=== PATIENT | female | born 1980 | race Caucasian/White ===

== ENCOUNTER 2020-11-12 09:27 | Outpatient (CLI) | payer OTHER, SELFPAY ==
--- NOTE | ~2020-11-12 | MM_ITS ---
EXAMINATION: MM screening shawn BI w rahul HISTORY: Screening TECHNIQUE: Craniocaudal and mediolateral oblique 3-D tomosynthesis images were obtained and synthetic 2-D images were generated. CAD analysis was submitted and interpreted. COMPARISON: No prior mammogram is available for comparison at this institution. BREAST PARENCHYMAL COMPOSITION: There are scattered areas of fibroglandular density. FINDINGS: There is no evidence of suspicious mass, calcification, or architectural distortion to sugg est malignancy in either breast. There has been no suspicious interval change. IMPRESSION: 1. No mammographic evidence of malignancy. 2. Recommend routine screening mammography in one year. BI-RADS Category 1: Negative Reviewed, dictated and finalized at location A.
== END 2020-11-12 09:28 | disposition home or self-care (01) ==
LOC: ANHIMG 09:29
PROVIDERS: PCP Family Medicine; Visit Provider Obstetrics & Gynecology
DX: Z12.31 Encounter for screening mammogram for malignant neoplasm of breast (principal)
CPT/HCPCS: 77063; 77067

== ENCOUNTER 2022-01-13 12:36 | Outpatient (CLI) | payer OTHER, SELFPAY ==
--- NOTE | ~2022-01-13 | MM_ITS ---
EXAMINATION: MM screening shawn BI w rahul HISTORY: Screening TECHNIQUE: Craniocaudal and mediolateral oblique 3-D tomosynthesis images were obtained and synthetic 2-D images were generated. CAD analysis was submitted and interpreted. COMPARISON: 11/12/2020 BREAST PARENCHYMAL COMPOSITION: There are scattered areas of fibroglandular density. FINDINGS: There is no evidence of suspicious mass, calcification, or architectural distortion to sugg est malignancy in either breast. There has been no suspicious interval change. IMPRESSION: 1. No mammographic evidence of malignancy. 2. Recommend routine screening mammography in one year. BI-RADS Category 1: Negative Reviewed, dictated and finalized at location A. SION SUPERVISOR
== END 2022-01-13 12:37 | disposition home or self-care (01) ==
PROVIDERS: Visit Provider Obstetrics & Gynecology
DX: Z12.31 Encounter for screening mammogram for malignant neoplasm of breast (principal)
CPT/HCPCS: 77063; 77067

== ENCOUNTER 2023-01-24 09:17 | Outpatient (CLI) | payer OTHER, SELFPAY ==
--- NOTE | ~2023-01-24 | MM_ITS ---
EXAMINATION: MM screening shawn BI w rahul HISTORY: Screening mammogram TECHNIQUE: Craniocaudal and mediolateral oblique 3-D tomosynthesis images were obtained and synthetic 2-D images were generated. CAD analysis was submitted and interpreted. COMPARISON: 01/13/2022, 11/12/2020 bilateral screening mammogram examinations BREAST PARENCHYMAL COMPOSITION: There are scattered areas of fibroglandular density. FINDINGS: There is no evidence of suspicious mass, calcification, or architectural distortion to sugg est malignancy in either breast. There has been no suspicious interval change. IMPRESSION: 1. No mammographic evidence of malignancy. 2. Recommend routine screening mammography in one year. BI-RADS Category 1: Negative Reviewed, dictated and finalized at location A. TAL MARKETING SPECIALIST
== END 2023-01-24 09:18 | disposition home or self-care (01) ==
LOC: ANHIMG 09:20
PROVIDERS: PCP Internal Medicine; Visit Provider Obstetrics & Gynecology
DX: Z12.31 Encounter for screening mammogram for malignant neoplasm of breast (principal)
CPT/HCPCS: 77063; 77067

== ENCOUNTER 2024-02-23 08:51 | Outpatient (CLI) | payer OTHER, SELFPAY ==
--- NOTE | ~2024-02-23 | MM_ITS ---
EXAMINATION: MM screening shawn BI w rahul HISTORY: Screening TECHNIQUE: Craniocaudal and mediolateral oblique 3-D tomosynthesis images were obtained and synthetic 2-D images were generated. CAD analysis was submitted and interpreted. COMPARISON: 01/24/2023 and dating back to 11/12/2020 BREAST PARENCHYMAL COMPOSITION: There are scattered areas of fibroglandular density. FINDINGS: Stable parenchymal pattern without suspicious microcalcifications, architectural distortion, discrete masses or significant asymmetry. IMPRESSION: 1. No mammographic evidence of malignancy. 2. Recommend routine screening mammography in one year. BI-RADS Category 1: Negative Reviewed, dictated and finalized at location A. E CUTTER AND SWAGER
--- OUTSIDE RECORDS SUMMARY | 2024-03-01 20:35 | XMS_ITS | Encounter Summary ---
Author Organization [facility] Address [address] [place] [address]. [place], [place] [address] [place], [place] [id number] Care Team Providers Care Resistance Welder Name Role Phone Soraya Elias MD Primary Care Pr ovider Unavailable Tiffanie Malcolm MD Primary Care Provider [phone] Encounter Details Date Type Department Care Team (Latest Contact Info) Description 01/13/2022 Socrative Message Enc [facility] Multispecialty Care - [address] [place] [address] Soraya Elias MD Type of cardiomyopathy Social History Tobacco Use Types Packs/Day Years Used Date Smoking Tobacco: Never Smokeless Tobacco: Never Alcohol Use Standard Drinks/Week Comments Yes 6.7 (1 standard drink = 0.6 oz p ure alcohol) PHQ-2 Answer Date Recorded PHQ-2 Score - If the patient scores above 3, please move on to questions 3-9 0 11/10/2021 Comments No Sex and Gender Information Value Date Recorded Sex Assigned at Not on file Legal Sex Female 9:02 AM CDT Gender Identity Not on file Sexual Orientation Not on file COVID-19 Exposure Response Date Recorded In the last 10 days, have yo u been in contact with someone who was confirmed or suspected to have Coronavirus/COVID-19? No / Unsure 01/13/2022 8:48 AM EMAIL PRODUCER documented as of this encounter Plan of Treatment Not on file documented as of this encounter Visit Diagnoses Not on filedocumented in this encounter Care Teams Resistance Welder Relationship Specialty Start Date End Date Soraya Elias MD PCP - General FAMILY PRACTICE 11/10/21 08/01/22 Tiffanie Malcolm MD [address] [address] PCP - General INTERNAL MEDICINE 08/02/22 documented as of this encounter
--- OUTSIDE RECORDS SUMMARY | 2024-03-01 20:35 | XMS_ITS | Encounter Summary ---
Author Organization [facility] Address [facility]. [place], [place] [address] [place] [address] Care Team Providers Care Textile Screen Printer Name Role Phone Tiffanie Malcolm MD Primary Care Provider [phone] Encounter Details Date Type Department Care Team (Latest Contact Info) Description 09/06/2022 Travel Social History Tobacco Use Types Packs/Day Years Used Date Smoking Tobacco: Never Passive Smoke Exposure: Past Smokeless Tobacco: Never Alcohol Use Standard Drinks/Week Comments Yes 6.7 (1 standard drink = 0.6 oz p ure alcohol) PHQ-2 Answer Date Recorded Patient Health Questionnaire-2 Score 0 07/09/2022 Comments No Sex and Gender Information Value Date Recorded Sex Assigned at Not on file Legal Sex Female 9:02 AM CDT Gender Identity Not on file Sexual Orientation Not on file 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
--- OUTSIDE RECORDS SUMMARY | 2024-03-01 20:35 | XMS_ITS | Encounter Summary ---
Author Organization [facility] Address [address] [place] [address]. [id number] [place] [address] Care Team Providers Care Assistant Administrator Name Role Phone Soraya Elias MD Primary Care Pr ovider Unavailable Reason for Visit * Reason Onset Date Comments Schedule Test 11/26/2021 echo Encounter Details Date Type Department Care Team (Late st Contact Info) Description 11/26/2021 [place] [address] Mar Henley RMA Schedule Test (echo) Social History Tobacco Use Types Packs/Day Years [...] suspected to have Coronavirus/COVID-19? No / Unsure 11/10/2021 9:02 AM CDT documented as of this encounter Progress Notes * JOSETTE Reynolds - 11/26/2021 6:20 PM CDT Left message for ordering that we need payable dx code before scheduling echo. documented in this encounter Plan of Treatment Not on file documented as of this encounter Visit Diagnoses Not on filedocumented in this encounter Care Teams Assistant Administrator Relationship Specialty Start Date End Date Soraya Elias MD PCP - General FAMILY PRACTICE 11/10/21 08/01/22 documented as of this encounter
--- OUTSIDE RECORDS SUMMARY | 2024-03-01 20:35 | XMS_ITS | Encounter Summary ---
Author Organization [facility] Address [address] [place] [address]. [place], [place] [address] [place] [address] Care Team Providers Care Banquet Stewardess Name Role Phone Soraya Elias MD Primary Care Pr ovider Unavailable Reason for Visit * Reason Comments Allied Health Visit Lab draw Encounter Details Date Type Department Care Team (Late st Contact Info) Description 07/14/2022 8:00 AM CDT Allied Health/Nurse Visit [facility] Medical Group Multispecialty [address] [place] [address] Soraya Elias MD Allied Health Visit (Lab draw) Social History Tobacco Use Types Packs/Day Years [...] suspected to have Coronavirus/COVID-19? No / Unsure 07/14/2022 7:54 AM CDT documented as of this encounter Progress Notes * Yue Woody MA - 07/14/2022 8:00 AM CDT Lab draw documented in this encounter Plan of Treatment Not on file documented as of this encounter Procedures Procedure Name Priority Date/Time Associated Diagnosis Comments COMPREHENSIVE METABOLIC PANEL Routine 07/14/2022 8:09 AM CDT Elevated fasting glucose Elevated ALT measurement BMI 37.0-37.9, adult Dyslipidemia LIPID PANEL Routine 07/14/2022 8:09 AM CDT BMI 37.0-37.9, adult Dyslipidemia documented in this encounter Results * (ABNORMAL) LIPID PANEL (07/14/2022 8:09 AM CDT) CHOLESTEROL 220(H) <200 MG/DL 07/14/2022 3:33 PM CDT [facility] TRIGLYCERIDES 118 <150 MG/DL 07/14/2022 3:33 PM CDT [facility] HDL 51 >40 MG/DL 07/14/2022 3:33 PM CDT [facility] LDL-C 145(H) <100 MG/DL 07/14/2022 3:33 PM CDT [facility] VLDL CALCULATION 24 5 - 28 MG/DL 07/14/2022 3:33 PM CDT [facility] CHOL/HDL RATIO 4.3(H) 0.0 - 4.0 07/14/2022 3:33 PM CDT [facility] LDL/HDL 2.8(H) 0.41 - 2.13 07/14/2022 3:33 PM CDT [facility] NON HDL CHOLESTEROL 169(H) <140 MG/DL 07/14/2022 3:33 PM CDT [facility] 07/14/2022 8:09 AM CDT us Soraya Elias MD LABORATORY Final Result [facility] [place] [address] [place] [address], [place] [phone] * (ABNORMAL) COMPREHENSIVE METABOLIC PANEL (07/14/2022 8:09 AM CDT) [facility] SODIUM S/P/B 142 136 - 145 MMOL/L 07/14/2022 3:33 PM CDT [facility] POTASSIUM S/P/B 4.3 3.5 - 5.1 MMOL/L 07/14/2022 3:33 PM CDT [facility] CHLORIDE S/P/B 107 98 - 107 MMOL/L 07/14/2022 3:33 PM CDT [facility] CO2 27.8 21 - 32 MMOL/L 07/14/2022 3:33 PM CDT [facility] GLUCOSE 129(H) 70 - 99 MG/DL 07/14/2022 3:33 PM CDT [facility] BUN 13 7 - 18 MG/DL 07/14/2022 3:33 PM CDT [facility] CREATININE S/P/B 0.90 0.55 - 1.02 MG/DL 07/14/2022 3:33 PM CDT [facility] CALCIUM S/P/B 9.1 8.4 - 10.5 MG/DL 07/14/2022 3:33 PM CDT [facility] BILIRUBIN TOTAL S/P/B 0.6 0.2 - 1.0 MG/DL 07/14/2022 3:33 PM CDT [facility] ALKALINE PHOSPHATASE S/P/B 61 37 - 98 U/L 07/14/2022 3:33 PM CDT [facility] AST 18 15 - 37 U/L 07/14/2022 3:33 PM CDT [facility] ALT 40 14 - 59 U/L 07/14/2022 3:33 PM CDT [facility] TOTAL PROTEIN S/P/B 6.9 6.4 - 8.2 G/DL 07/14/2022 3:33 PM CDT [facility] ALBUMIN S/P/B 3.7 3.4 - 5.0 G/DL 07/14/2022 3:33 PM CDT [facility] [place] ANION GAP 7.2 5 - 15 MMOL/L 07/14/2022 3:33 PM CDT [facility] [place] Comment:REFERENCE RANGE NOT ESTABLISHED OSMOLALITY (CALC) 296 MOSM/KG 023 3:33 PM CDT [facility] [place], [place] Comment:REFERENCE RANGE NOT ESTABLISHED GFR ESTIMATE 82(L) >90 ML/MIN/1. 73 M2 07/14/2022 3:33 PM CDT [facility] [place] GFR NOTES GFR REFERENCE S: 07/14/2022 3:33 PM CDT [facility] [place] Comment: THE ESTIMATED GFR IS CALCULATED USING THE 2020 CKD-EPI EQUATION. THE FOLLOWING CATEGORIES FOR GRADING RENAL FUNCTION ARE RECOMMENDED BY THE INTERNATIONAL SOCIETY OF NEPHROLOGY (KDIGO 2012 CLINICAL PRACTICE GUIDELINE). G1,NORMAL OR HIGH: >89 ml/min/1.73 m2 G2,MILDLY DECREASED: 60-89 ml/min/1.73 m2 G3A,MILDLY TO MODERATELY DECREASED: 45-59 ml/min/1.73 m2 G3B,MODERATELY TO SEVERELY DECREASED: 30-44 ml/min/1.73 m2 G4,SEVERELY DECREASED: 15-29 ml/min/1.73 m2 G5,KIDNEY FAILURE: <15 ml/min/1.73 m2 07/14/2022 8:09 AM CDT us Soraya Elias MD LABORATORY Final Result [facility] [place] [address] [facility] [place] [address], [place] [phone] documented in this encounter Visit Diagnoses Diagnosis Elevated fasting glucose Impaired fasting glucose Elevated ALT measurement Nonspecific elevation of levels of transaminase or lactic acid dehydrogenase (LDH) BMI 37.0-37.9, adult Dyslipidemia Other and unspecified hyperlipidemia documented in this encounter Care Teams Banquet Stewardess Relationship Specialty Start Date End Date Soraya Elias MD PCP - General FAMILY PRACTICE 11/10/21 08/01/22 documented as of this encounter
--- OUTSIDE RECORDS SUMMARY | 2024-03-01 20:35 | XMS_ITS | Encounter Summary ---
Author Organization [facility] Address [address] [place] [address]. [place], [place] [address] [place] [address] Care Team Providers Care Slitter Cut Off Operator Name Role Phone Soraya Elias MD Primary Care Pr ovider Unavailable Encounter Details Date Type Department Care Team (Latest Contact Info) Description 12/11/2021 Travel Social History Tobacco Use Types Packs/Day [...] suspected to have Coronavirus/COVID-19? No / Unsure 12/11/2021 8:12 AM CDT documented as of this encounter Plan of Treatment Not on file documented as of this encounter Visit Diagnoses Not on filedocumented in this encounter Care Teams Slitter Cut Off Operator Relationship Specialty Start Date End Date Soraya Elias MD PCP - General FAMILY PRACTICE 11/10/21 08/01/22 documented as of this encounter
--- OUTSIDE RECORDS SUMMARY | 2024-03-01 20:35 | XMS_ITS | Encounter Summary ---
Author Organization [facility] Address [address] [facility]. [place], [place] [address] [place] [address] Care Team Providers Care Dry Janitor Name Role Phone Tiffanie Malcolm MD Primary Care Provider [phone] Encounter Details Date Type Department Care Team (Late st Contact Info) Description 09/06/2022 [facility] [place] [address] Abelardo Goldman MD,PHD Social History Tobacco Use Types Packs/Day Years [...] as of this encounter Plan of Treatment Scheduled Orders Name Type Priority Associated Diagnoses Orde r Schedule LIPID PANEL Lab Routine Hyperlipidemia, mixed Expected: 08/29/2023 (Approximate), Expires: 03/09/2024 documented as of this encounter Visit Diagnoses Diagnosis Hyperlipidemia, mixed- Primary Mixed hyperlipidemia documented in this encounter Care Teams Dry Janitor Relationship Specialty Start Date End Date Tiffanie Malcolm MD [address] [address] PCP - General INTERNAL MEDICINE 08/02/22 documented as of this encounter
--- OUTSIDE RECORDS SUMMARY | 2024-03-01 20:35 | XMS_ITS | Encounter Summary ---
Author Organization [facility] Address [address] [place] [address]. [place], [place] [address] [place] [address] Care Team Providers Care Associate Application Developer Name Role Phone Soraya Elias MD Primary Care Pr ovider Unavailable Encounter Details Date Type Department Care Team (Late st Contact Info) Description 01/06/2022 2:32 PM GENERAL OFFICE ASSOCIATE Hospital Encounter [facility] Cardiology EKG [address] [place] [address] Soraya Elias MD Discharge Disposition: Home or Self Care (Routine Discharge) Social History Tobacco Use Types Packs/Day Years [...] suspected to have Coronavirus/COVID-19? No / Unsure 01/06/2022 2:31 PM GENERAL OFFICE ASSOCIATE documented as of this encounter Medications at Time of Discharge cetirizine (ZYRTEC) 10 MG tablet Take 1 tablet (10 mg total) by mouth daily. medroxyPROGESTERo ne (DEPO-PROVERA) 150 MG/ML injection INJECT 150 MG (1ML) INTO THE MUSCLE EVERY 3 MONTHS 12/02/2021 documented as of this encounter Plan of Treatment Not on file documented as of this encounter Procedures Procedure Name Priority Date/Time Associated Diagnosis Comments ECG 12-LEAD Routine 01/06/2022 2:51 PM GENERAL OFFICE ASSOCIATE Obesity documented in this encounter Results * ECG 12 lead (01/06/2022 2:51 PM GENERAL OFFICE ASSOCIATE) 01/06/2022 2:51 PM GENERAL OFFICE ASSOCIATE Narrative [facility] RAD - 01/06/2022 10:55 PM GENERAL OFFICE ASSOCIATE ?[facility] ? [address] [place] ? Test Date: ?2022-01-06 Pat Name: ? ANGELA DIAZ ? Department: ?? 40 ? Room: ? Gender: ? Female ? Planer Mill Grader: ?? CDN : ?[id number] ? Requested By: SORAYA ELIAS Order Number: [id number] ? Reading : ?? Byron Medellin ? Measurements Intervals ?Canones ? Rate: ? 98 ? P: ?2 LA: ? 129 ?QRS: ?6 QRSD: ? 91 ? T: ?-1 QT: ? 360 ? QTc: ?460 ? Interpretive Statements SINUS RHYTHM MINIMAL ST DEPRESSION No previous ECG available for comparison RAL OFFICE ASSOCIATE Procedure Note Byron Medellin MD - 01/06/2022 [facility] [address] [facility] Test Date: 2022-01-06 Pat Name: ANGELA DIAZ Department: 40 Room: Gender: Female Planer Mill Grader: KATHARINE : 1980 Requested By: SORAYA ELIAS Order Number: [id number] Reading MD: Byron Medellin Measurements Intervals Canones Rate: 98 P: 2 LA: 129 QRS: 6 QRSD: 91 T: -1 QT: 360 QTc: 460 Interpretive Statements SINUS RHYTHM MINIMAL ST DEPRESSION No previous ECG available for comparison RAL OFFICE ASSOCIATE us Soraya Elias MD ECG ORDERABLES Final Result [facility] RAD documented in this encounter Visit Diagnoses Diagnosis Obesity- Primary Obesity, unspecified documented in this encounter Care Teams Associate Application Developer Relationship Specialty Start Date End Date Soraya Elias MD PCP - General FAMILY PRACTICE 11/10/21 08/01/22 documented as of this encounter
--- OUTSIDE RECORDS SUMMARY | 2024-03-01 20:35 | XMS_ITS | Encounter Summary ---
Author Organization [facility] Address [address] [place] [address]. [place], [place] [id number] [place] [address] Care Team Providers Care Dish Stacker Name Role Phone Soraya Elias MD Primary Care Pr ovider Unavailable Reason for Visit * Reason Comments Physical Sinus Problem Sinus pressure/conge stion-taking sudafed/zyrtec Encounter Details Date Type Department Care Team (Late st Contact Info) Description 01/13/2022 9:00 AM PARTS PERSON Office Visit [facility] - [address] [place] [address] Soraya Elias MD Physical; Sinus Problem (Sinus pressure/congestion -taking sudafed/zyrtec) Social History Tobacco Use Types Packs/Day Years Used Date Smoking Tobacco: Never Smokeless Tobacco: Never Tobacco Cessation:Counseling Given: Not Answered Alcohol Use Standard Drinks/Week Comments Yes 6.7 [...] Coronavirus/COVID-19? No / Unsure 01/13/2022 8:48 AM PARTS PERSON documented as of this encounter Last Filed Vital Signs Vital Sign Reading Time Taken Comments Blood Pressure 132/89 01/13/2022 8:56 AM PARTS PERSON Pulse 90 01/13/2022 8:56 AM PARTS PERSON Temperature 37 ??C (98.6 ??F) 01/13/2022 8:56 AM PARTS PERSON Respiratory Rate 18 01/13/2022 8:56 AM PARTS PERSON Oxygen Saturation 99% 01/13/2022 8:56 AM PARTS PERSON Inhaled Oxygen Concentration - - Weight 100.2 kg (221 lb) 01/13/2022 8:56 AM PARTS PERSON Height 163.8 cm (5' 4.5 ) 01/13/2022 8:56 AM PARTS PERSON Body Mass Index 37.35 01/13/2022 8:56 AM PARTS PERSON documented in this encounter Patient Instructions * Patient Instructions* Soraya Elias MD - 01/13/2022 9:00 AM PARTS PERSON Hepatitis C was drawn today. I will notify you via Chalkboard of the results. Cardiomyopathy classes: Hypertrophic Dilated Restrictive S PERSON S PERSON documented in this encounter Progress Notes * Soraya Elias MD - 01/13/2022 9:00 AM CST Angela Brady is a 41-year-old female who presents today for her annual physical examination& health maintenance discussion. Issues the patient specifically wishes to address include: - has a mammogram scheduled today - on depo - had a pap smear in [address] Castorena - no family history of breast cancer or colon cancer - her sister has a genetic form of cardiomyopathy and is having cardiac issues ; the patient carries the same gene; her EKG and echo were normal with no significant findings - she did mention dyspnea on exertion at her last visit, however she states today it's mainly if she has nasal congestion and from her weight; she has joined the [employer] and has an elliptical at home and is able to exercise with no shortness of breath - her mom and grandmother carry the same gene but they are both fine in terms of their cardiac status History reviewed. No pertinent past medical history. The above PMHx was reviewed with patient and updated in the medical record. History reviewed. No pertinent surgical history. The above PSHx was reviewed with patient and updated in the medical record. Patient Active Problem List Diagnosis ??? Obesity ??? Cervicovaginal cytology specimen unsatisfactory ??? Melanocytic nevus ??? Depo-Provera contraceptive status ??? Genetic predisposition to cardiomyopathy The above Problem List was reviewed with patient and updated in the medical record. Patient Care Team: Soraya Elias MD as PCP - General (FAMILY PRACTICE) The above Patient Care Team was reviewed with patient and updated in the medical record. Family History Problem Relation Name Age of Onset ??? Heart Disease Sister Jennifer Lao Cardiomyopathy The above Family Medical Hx was reviewed with patient and updated in the medical record. Social History Socioeconomic History ??? Marital status: Spouse name: Not on file ??? Number of children: Not on file ??? Years of education: Not on file ??? Highest education level: Not on file Occupational History ??? Not on file Tobacco Use ??? Smoking status: Never ??? Smokeless tobacco: Never Substance and Sexual Activity ??? Alcohol use: Yes Alcohol/week: 6.7 standard drinks Types: 2 Glasses of wine, 2 Cans of beer per week ??? Drug use: Never ??? Sexual activity: Yes Partners: Male control/protection: Injection Other Topics Concern ??? Not on file Social History Narrative ??? Not on file Social Determinants of Health Financial Resource Strain: Not on file Food Insecurity: Not on file Transportation Needs: Not on file Physical Activity: Not on file Stress: Not on file Social Connections: Not on file Intimate Partner Violence: Not on file Housing Stability: Not on file Menstrual / OB History: OB History No obstetric history on file. Patient's last menstrual period was No LMP recorded (lmp unknown). Patient has had an injection.. Transport Engineer care through obgyn; Dr. Castorena Current Outpatient Medications Medication Sig Dispense Refill ??? cetirizine (ZYRTEC) 10 MG tablet Take 10 mg by mouth daily. ??? medroxyPROGESTERone (DEPO-PROVERA) 150 MG/ML injection INJECT 150 MG (1ML) INTO THE MUSCLE EVERY 3 MONTHS No current facility-administered medications for this visit. No Known Allergies Health Maintenance Due Topic Date Due ??? Annual Physical Never done ??? Hepatitis C Never done ??? DTaP, Tdap and Td Vaccines (1 - Tdap) Never done ??? Cervical Cancer Screening with HPV Never done ??? COVID-19 Vaccine (4 - Booster for Pfizer series) 04/20/2021 ??? Influenza Adult (1) 11/28/2021 The Health Maintenance Record was reviewed with patient and updated in the medical record. Immunization History Administered Date(s) Administered ??? Influenza Adult (Generic) 01/18/2020 ??? PFIZER COVID-19 (ORIGINAL FORMULATION, PURPLE CAP), MRNA, LNP-S, PF, 30 MCG/0.3 ML DOSE 04/24/2020, 05/15/2020, 02/23/2021 The ImmunizationRecord was reviewed with patient and updated in the medical record. Patient is 41-year-old as of today IF OVER 65 or increased risk factors (Prev fx, glucocorticoid tx, parental hip fx, low body weight,cigarette smoking, EtOH consumption, RA, risks for secondary osteoporosis) BONE DENSITOMETRY? Not required at this time The subject of an Advanced Directive was not addressed with this patient ROS Review of Systems Constitutional: Negative for chills and fever. HENT: Negative for ear discharge and ear pain. Eyes: Wears glasses when using the computer Respiratory: Negative for cough. Cardiovascular: Negative for chest pain, palpitations and leg swelling. Gastrointestinal: Negative for abdominal pain, nausea and vomiting. PHYSICAL EXAM Filed Vitals: 01/13/22 0856 BP: 132/89 Pulse: 90 Resp: 18 Temp: 98.6 ??F (37 ??C) TempSrc: Temporal SpO2: 99% Weight: 100.2 kg (221 lb) Height: 5' 4.5 (1.638 m) Body mass index is 37.35 kg/m??. General appearance: alert, cooperative, no distress and moderately obese Head: Normocephalic, without obvious abnormality, atraumatic Eyes: conjunctivae clear. PERRL, EOM's intact Ears: External ears normal. Canals clear. TM's normal. Nose: no rhinorrhea Throat: oropharynx clear, no erythema and no tonsillar enlargement or exudates Neck: Neck supple. No adenopathy. Thyroid symmetric, normal size, Back: symmetric, no curvature. ROM normal. No CVA tenderness. Breasts: mammography schedule is discussed; having mammogram today Lungs: clear to auscultation Heart: regular rate and rhythm, S1, S2 normal, no murmur, click, rub or gallop Abdomen: abdomen is soft without significant tenderness, masses, organomegaly or guarding Pelvic exam: deferred; done with obgyn. Extremities: extremities normal, atraumatic, no cyanosis or edema Pulses: Pulses 2+ and symmetric Skin: small benign nevi on her back; below her left eye there is a nevus that is light brown Lymph nodes: No palpable lymph nodes Neurologic: Alert and oriented X 3, normal strength and tone. Normal symmetric reflexes. Normal coordination and gait. Psych: mood and affect are within normal limits, pt is a good historian and no memory problems werenoted Lab / In Office Testing / Radiograph review: No results found for this visit on 01/13/22. Assessment/Plan: 1. Annual physical exam HEPATITIS C ANTIBODY VENIPUNC ARM DRAW 2. Need for hepatitis C screening test HEPATITIS C ANTIBODY VENIPUNC ARM DRAW 3. Genetic predisposition to cardiomyopathy 4. Family history of cardiomyopathy 5. Nasal congestion - annual physical completed today - hep C screening obtained today - she does carry the gene for cardiomyopathy; she was tested because her sister recently tested positive and has cardiomyopathy now - the patient is doing well, no cardiac symptoms; echo and EKG were normal - will monitor - discussed weight loss (previously provided her with a Mediterranean diet as written information) and discussed exercise - lipid panel is fine - her blood sugar was elevated fasting; will monitor for now; A1c was normal - she is using Sudafed for her nasal congestion - advised to use Flonase 1 spray in each nostril BID x 3-4 weeks Followup Plan: 4 months for weight and impaired fasting glucose Discussed the patient's BMI with her. The BMI is 37.35. Counseling Time ~10 min (Diet & Activity Modification/ Medication/ Cardiovascular Screening / Cancer (i.e. Skin, Colon, Breast, and cervical cancer screening), reviewing medical records, and coordination of care with other providers. Instructions on the sign/symptoms of worsening problems were given and verbal acknowledgement of understanding was noted. Those present were instructed to call the office or go to an ER if necessary to address these worsening conditions. The patient verbalized understanding and agreed to the plan. Patient Instructions Hepatitis C was drawn today. I will notify you via nCrypted Cloudhart of the results. Cardiomyopathy classes: Hypertrophic Dilated Restrictive Soraya Elias MD Family Medicine [facility] S PERSON documented in this encounter Plan of Treatment Not on file documented as of this encounter Procedures Procedure Name Priority Date/Time Associated Diagnosis Comments COLLECTION VENOUS BLOOD VENIPUNCTURE Routine 01/13/2022 9:55 AM PARTS PERSON Annual physical exam Need for hepatitis C screening test HEPATITIS C ANTIBODY Routine 01/13/2022 9:55 AM PARTS PERSON Annual physical exam Need for hepatitis C screening test documented in this encounter Results * HEPATITIS C ANTIBODY (01/13/2022 9:55 AM PARTS PERSON) HEPATITIS C AB NON-REACTI VE NON-REACT BULMARO 01/13/2022 7:[address] [facility] Comment: ANTIBODIES TO HCV NOT DETECTED. DOES NOT EXCLUDE THE POSSIBILITY OF EXPOSURE TO HCV. 01/13/2022 9:55 AM PARTS PERSON us Soraya Elias MD LABORATORY Final Result [facility] [address] [place] [address], [id number] documented in this encounter Visit Diagnoses Diagnosis Annual physical exam- Primary Routine general medical examination at a health care facility Need for hepatitis C screening test Special screening examination for other specified viral diseases Genetic predisposition to cardiomyopathy Family history of cardiomyopathy Family history of other cardiovascular diseases Nasal congestion Other diseases of nasal cavity and sinuses documented in this encounter Care Teams Dish Stacker Relationship Specialty Start Date End Date Soraya Elias MD PCP - General FAMILY PRACTICE 11/10/21 08/01/22 documented as of this encounter
--- OUTSIDE RECORDS SUMMARY | 2024-03-01 20:35 | XMS_ITS | Encounter Summary ---
Author Organization [facility] Address [address] [place] [address]. [place], [place] [address] [place] [address] Care Team Providers Care Before School Babysitter Name Role Phone Soraya Elias MD Primary Care Pr ovider Unavailable Encounter Details Date Type Department Care Team (Latest Contact Info) Description 07/09/2022 Travel Social History Tobacco Use Types Packs/Day [...] suspected to have Coronavirus/COVID-19? No / Unsure 07/09/2022 8:25 AM CDT documented as of this encounter Plan of Treatment Not on file documented as of this encounter Visit Diagnoses Not on filedocumented in this encounter Care Teams Before School Babysitter Relationship Specialty Start Date End Date Soraya Elias MD PCP - General FAMILY PRACTICE 11/10/21 08/01/22 documented as of this encounter
--- OUTSIDE RECORDS SUMMARY | 2024-03-01 20:35 | XMS_ITS | Encounter Summary ---
Author Organization [facility] Address [address] [place] [address]. [place], [place] [address] [place] [address] Care Team Providers Care Turbine Room Attendant Name Role Phone Tiffanie Malcolm MD Primary Care Provider [phone] Reason for Visit * Reason Comments Consult Family History Cardi omyopathy and Genetic Predisposition Cardiomyopathy * Consultation (Routine) - Closed Specialty Diagnoses / Procedures Referred By Contact Referred To Contact CARDIOLOGY / Cardiology Diagnoses Family history of first-degree relative with cardiomyopathy Genetic predisposition to cardiomyopathy Procedures OFFICE/OUTPT VISIT,NEW,LEVL III OFFICE/OUTPT VISIT,NEW,LEVL IV OFFICE/OUTPT VISIT,NEW,LEVL V OFFICE/OUTPT VISIT,EST,LEVL III OFFICE/OUTPT VISIT,EST,LEVL IV OFFICE/OUTPT VISIT,EST,LEVL V Soraya Elias MD [facility] [place] [address] [address] Phone: tel: fax: Referral ID Status Reason Start Date Expiration Date V isits Requested Visits Authorized [id number] Closed Specialty Services 07/30/2022 08/30/2023 99 99 Encounter Details Date Type Department Care Team (Latest Contact Info) Description 09/06/2022 11:00 AM CDT Office Visit [facility] [address] [address] Mihai Atwood MD,PHD Consult (Family History Cardiomyopathy and Genetic Predisposition Cardiomyopathy ) Social History Tobacco Use Types Packs/Day Years Used Date Smoking Tobacco: Never Passive Smoke Exposure: Past Smokeless Tobacco: Never Tobacco Cessation:Counseling Given: Not [...] on file documented as of this encounter Last Filed Vital Signs Vital Sign Reading Time Taken Comments Blood Pressure 132/80 09/06/2022 10:41 AM CDT Pulse 90 09/06/2022 10:41 AM CDT Temperature - - Respiratory Rate - - Oxygen Saturation 98% 09/06/2022 10: 41 AM CDT Inhaled Oxygen Concentration - - Weight 101.4 kg (223 lb 9.6 oz) 023 10:41 AM CDT Height 163.8 cm (5' 4.5 ) 09/06/2022 10 :41 AM CDT Body Mass Index 37.79 09/06/2022 10:41 AM CDT documented in this encounter Patient Instructions * Attachments The following attachments cannot be sent through Care Everywhere. * Drugs to Help Lower Your Cholesterol (Malaysian) documented in this encounter Progress Notes * Mihai Atwood MD,PHD - 09/06/2022 11:00 AM CDT Images from the original note were not included. [place], [place] [address] Reason for Visit: Consult (Family History Cardiomyopathy and Genetic Predisposition Cardiomyopathy ) History of Present Illness: Ms. 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 The patient's sister was recently diagnosed with hypertrophic obstructive cardiomyopathy at the age of 39. She underwent placement of an ICD at [facility] in [place]. The patient subsequently was screened and was positive for one of the genes that causes hypertrophic cardiomyopathy. On 01/16/2022 the patient underwent a transthoracic echocardiogram that demonstrated normal left ventricular systolic function with an EF of 50 to 55% and no evidence of left ventricular hypertrophy,diastolic dysfunction or obstructive cardiomyopathy. EKG performed today demonstrated normal sinus rhythm with poor R wave progression but no ST changes consistent with hypertrophic cardiomyopathy. The patient does not have chest discomfort, orthopnea, paroxysmal nocturnal dyspnea, lower extremity edema, dyspnea on exertion, intermittent palpitations, presyncope or syncope. She does not have abdominal pain, hematochezia or hematuria. There is no prior history of TIA, ischemic stroke or intracranial hemorrhage. There is no family history of sudden cardiac . Recommendations and Plan: Family history of hypertrophic cardiomyopathy: 1. The patient does not have chest discomfort, dyspnea on exertion and recently had a normal echocardiogram. 2. The patient will undergo annual echocardiograms for monitoring given the family history. Elevated LDL cholesterol: 1. Discussed preventative interventions for cardiovascular disease. 2. Recommend lifestyle modification including adopting a plant-based diet, regular exercise and weight loss. 3. Discussed the idea of starting statin therapy. The patient would like to try lifestyle modification. 4. The patient will be reviewed in 1 year to decide whether or not she would be comfortable starting statins. Elevated BMI: 1. Aggressive lifestyle modification as above. Medications: Current Outpatient Medications: cetirizine (ZYRTEC) 10 MG tablet, Take 1 tablet (10 mg total) by mouth daily., Disp: , Rfl: medroxyPROGESTERone (DEPO-PROVERA) 150 MG/ML injection, INJECT 150 MG (1ML) INTO THE MUSCLE EVERY 3MONTHS, Disp: , Rfl: Review of patient's allergies indicates: No Known Allergies History reviewed. No pertinent past medical history. Past Surgical History: Procedure Laterality Date REMOVAL OF TONSILS,12+ Y/O Social History Tobacco Use Smoking status: Never Passive exposure: Past Smokeless tobacco: Never Vaping Use Vaping Use: Never used Substance Use Topics Alcohol use: Yes Alcohol/week: 6.7 standard drinks Types: 2 Glasses of wine, 2 Cans of beer per week Drug use: Never Family History Problem Relation Name Age of Onset Heart Disease Sister Jennifer Lao Cardiomyopathy Other (positive genetic predisposition cardiomyopathy) Sister Other (Other) Sister Family Status Relation Name Status Mother Alive, age 61y Father Alive Sister Jennifer Lao Alive, age 39y Sister Alive, age 20y MGM Alive, age 83y Review of Systems Constitutional: Negative for recent unintentional weight gain, recent unintentional weight loss andnew or significant fatigue. HENT: Negative for new or significant hearing loss. Eyes: Negative for blurred vision and double vision. Respiratory: Negative for cough, new or significant shortness of breath and snoring. Cardiovascular: See HPI. Gastrointestinal: Negative for blood in stool and melena. Genitourinary: Negative for dysuria. Musculoskeletal: Negative for myalgias and new or worsening joint stiffness/pain. Skin: Negative for rash. Neurological: Negative for tingling/numbness and focal weakness. Endo/Heme/Allergies: Negative for new or significant bruising/bleeding and polydipsia. Psychiatric/Behavioral: Negative for depression and new or significant memory loss. Vitals: 09/06/22 1041 BP: 132/80 Pulse: 90 Weight: 101.4 kg (223 lb 9.6 oz) Height: 5' 4.5 (1.638 m) Body mass index is 37.79 kg/m??. Cardiac Exam Rate/Rhythm: Normal rate and regular rhythm. PMI: PMI is not displaced. Pulses: Normal pulses. Carotid pulses are 2+ on the right side and 2+ on the left side. Radial pulses are 2+ on the right side and 2+ on the left side. Femoral pulses are 2+ on the right side and 2+ on the left side. Dorsalis pedis pulses are 2+ on the right side and 2+ on the left side. Posterior tibial pulses are 2+ on the right side and 2+ on the left side. Heart Sounds: Normal heart sounds. Normal S1 sounds. Normal S2 sounds. No gallop present. No S3. NoS4. Murmurs: Physical Exam Constitutional: No distress. Healthy Appearance. HENT: Oropharynx clear. Eyes: Pupils equal, round, and reactive to light. Conjunctivae normal. Neck: Neck supple. No JVD. Abdomen: Abdomen soft. Bowel sounds normal. No tenderness. No mass. No hepatomegaly. No splenomegaly. Abdominal aorta not palpably enlarged. No abdominal bruit present. Pulmonary: Effort normal. Breath sounds normal. Skin: No rash. No cyanosis. No clubbing. No xanthoma. Musculoskeletal: No kyphosis. Normal ROM. Neurological: Alert. Oriented x 3. Appropriate mood and affect. Normal motor skills. Normal gait. Comments: 12/11/2021 8:29 AM 07/14/2022 8:09 AM LIPIDS FLOWSHEET AST 32 18 ALT 81 40 CHOLESTEROL 244 220 HDL 51 51 TRIGLYCERIDES 150 118 LDL-C 163 145 EKG: Normal sinus rhythm, RSR pattern-normal variant with poor R wave progression-I personally reviewed the EKG. Imaging: ELECTROCARDIOGRAM [facility] [place] Test Date: 2022-09-06 Pat Name: ANGELA DIAZ Department: 150 Room: Gender: Female Certified Alcohol Drug Counselor: : 1980 Requested By: MIHAI ATWOOD Order Number: [id number] Reading MD: MIHAI ATWOOD Measurements Intervals Deputy Rate: 76 P: 9 NV: 141 QRS: 5 QRSD: 93 T: 5 QT: 387 QTc: 438 Interpretive Statements SINUS RHYTHM INCOMPLETE RIGHT BUNDLE BRANCH BLOCK MINIMAL VOLTAGE CRITERIA FOR LVH, CONSIDER NORMAL VARIANT MODERATE T-WAVE ABNORMALITY, CONSIDER ANTERIOR ISCHEMIA Diagnoses/Impression: 1. Family history of cardiomyopathy ELECTROCARDIOGRAM 2. Hyperlipidemia, mixed ELECTROCARDIOGRAM 3. Class 2 obesity due to excess calories without serious comorbidity with body mass index (BMI) of37.0 to 37.9 in adult 4. Statin medication declined by patient Thank you for the privilege of participating in the care of Ms. Angela Diaz. If you do have any additional questions or requests, please do not hesitate to contact me or our team at [facility]. Mihai Atwood MD,PHD Referring Provider: Soraya Gregorio* PCP: TIFFANIE MALCOLM MD documented in this encounter Plan of Treatment Not on file documented as of this encounter Procedures Procedure Name Priority Date/Time Associated Diagnosis Comments ELECTROCARDIOGRAM (NON MIDMARK ACQUIRED) Routine 09/06/2022 10:56 AM CDT Hyperlipidemia, mixed Family history of cardiomyopathy Class 2 obesity due to excess calories without serious comorbidity with body mass index (BMI) of 37.0 to 37.9 in adult documented in this encounter Results * ELECTROCARDIOGRAM (09/06/2022 10:56 AM CDT) 09/06/2022 10:5 6 AM CDT Narrative [facility] - 09/07/2022 8:29 AM CDT ? [facility] ? [place], [place] ? Test Date: ?2022-09-06 Pat Name: ? ANGELA DIAZ ? Department: ?? 150 ? Room: ? Gender: ? Female ? Certified Alcohol Drug Counselor: ?? : ?1980 ? Requested By: MIHAI ATWOOD Order Number: [id number] ?Reading MD: ?? Mihailev Atwood ? Measurements Intervals ?Deputy ? Rate: ? 76 ? P: ?9 NV: ? 141 ?QRS: ?5 QRSD: ? 93 ? T: ?5 QT: ? 387 ? QTc: ?438 ? Interpretive Statements SINUS RHYTHM Non-specific ST-T wave abnormalities Procedure Note Mihai Atwood MD,PHD - 09/07/2022 [facility] [place] Test Date: 2022-09-06 Pat Name: ANGELA DIAZ Department: 150 Room: Gender: Female Certified Alcohol Drug Counselor: : 1980 Requested By: MIHAI ATWOOD Order Number: [id number] [place] MD: Mihai Atwood Measurements Intervals Deputy Rate: 76 P: 9 NV: 141 QRS: 5 QRSD: 93 T: 5 QT: 387 QTc: 438 Interpretive Statements SINUS RHYTHM Non-specific ST-T wave abnormalities us Mihai Atwood MD,PHD PROCEDURES-ORDERABLE NO CHARGE Final Result [facility] documented in this encounter Visit Diagnoses Diagnosis Family history of cardiomyopathy- Primary Family history of other cardiovascular diseases Hyperlipidemia, mixed Mixed hyperlipidemia Class 2 obesity due to excess calories without serious comorbidity with body mass index (BMI) of 37.0 to 37.9 in adult Statin medication declined by patient documented in this encounter Care Teams Turbine Room Attendant Relationship Specialty Start Date End Date Tiffanie Malcolm MD [address] [facility] [address] [place] [address] PCP - General INTERNAL MEDICINE 08/02/22 documented as of this encounter
--- OUTSIDE RECORDS SUMMARY | 2024-03-01 20:35 | XMS_ITS | Encounter Summary ---
Author Organization [facility] Address [address] [place] [address]. [place], [place] [id number] [place] [id number] Care Team Providers Care Linter Drier Operator Name Role Phone Soraya Elias MD Primary Care Pr ovider Unavailable Tiffanie Malcolm MD Primary Care Provider [phone] Encounter Details Date Type Department Care Team (Late st Contact Info) Description 11/10/2021 [employer] Message Enc [facility] Multispecialty Care - [address] [place] [address] Soraya Elias MD echocardiogram Social History Tobacco Use Types Packs/Day Years [...] on filedocumented in this encounter Care Teams Linter Drier Operator Relationship Specialty Start Date End Date Soraya Elias MD PCP - General FAMILY PRACTICE 11/10/21 08/01/22 Tiffanie Malcolm MD [address] [address] PCP - General INTERNAL MEDICINE 08/02/22 documented as of this encounter
--- OUTSIDE RECORDS SUMMARY | 2024-03-01 20:35 | XMS_ITS | Encounter Summary ---
Author Organization [facility] Address [address] [place] [address]. [place] [id number] [place] [address] Care Team Providers Care Terminal Carman Name Role Phone Soraya Elias MD Primary Care Pr ovider Unavailable Reason for Referral * Imaging (Routine) - Closed Specialty Diagnoses / Procedures Referred By Contac t Referred To Contact RADIOLOGY Diagnoses Family history of first-degree relative with cardiomyopathy Class 2 obesity due to excess calories without serious comorbidity with body mass index (BMI) of 37.0 to 37.9 in adult Dyspnea on exertion Procedures USE ECHOCARDIOGRAM W CON Soraya Elias MD Referral ID Status Reason Start Date Expiration Date Visits Re quested Visits Authorized [id number] Closed 11/10/2021 11/10/2022 1 1 Reason for Visit * Reason Comments New Patient Encounter Details Date Type Department Care Team (Late st Contact Info) Description 11/10/2021 9:20 AM CDT Office Visit [facility] - [address] [place] [address] Soraya Elias MD New Patient Social History Tobacco Use Types Packs/Day Years [...] AM CDT documented as of this encounter Last Filed Vital Signs Vital Sign Reading Time Taken Comments Blood Pressure 126/74 11/10/2021 9:38 AM CDT Pulse 64 11/10/2021 9:38 AM CDT Temperature 37 ??C (98.6 ??F) 11/10/2021 9:38 AM CDT Respiratory Rate 18 11/10/2021 9:38 AM CDT Oxygen Saturation - - Inhaled Oxygen Concentration - - Weight 101.6 kg (224 lb) 11/10/2021 9:38 AM CDT Height 163.8 cm (5' 4.5 ) 11/10/2021 9:38 AM CDT Body Mass Index 37.86 11/10/2021 9:38 AM CDT documented in this encounter Patient Instructions * Patient Instructions* Soraya Elias MD - 11/10/2021 9:20 AM CDT I have ordered an EKG. [facility] have [facility] at [facility]. I have also ordered labs to be done fasting. You can either have this done at [facility] as well or you can schedule a nursing visit in 2-3 weeks to have it done here in our office. We will do an annual physical in 6 weeks. * Attachments The following attachments cannot be sent through Care Everywhere. * Mediterranean Diet (Swazi) documented in this encounter Progress Notes * Yue Woody MA - 11/10/2021 9:20 AM CDTAddended by: YUE WOODY on: 12/11/2021 08:31 AM Modules accepted: Orders * Soraya Elias MD - 11/10/2021 9:20 AM CDT Ismael Diaz is a 41-year-old female who presents today alone for evaluation of Chief Complaint Patient presents with ??? New Patient History of Present Illness: Here as a new patient to discuss family history of cardiomyopathy - patient's sister who is a few years younger than her was recently diagnosed with a genetic form of cardiomyopathy; her symptoms developed last year after she got her COVID-19 vaccine - she had shortness of breath; EF was 20-30% and now requires a defibrillator; genetic testing was done and she was found to be positive - the patient would like to know if she requires any further testing - her sister told her that she should be receiving genetic testing in the mail, but has not received anything yet - she states that she has no chest pain; sometimes may feel a bit short of breath with exertion dueto her weight, but nothing significant - no lower leg swelling - she has not seen a primary care doctor in a few years - she does have an Obgyn; Dr. Castorena in [place] - they do her pap smears and order her mammograms; they will be ordering a mammogram for her this year; first mammogram was done last year and was normal - she is on control; previously had an IUD but then switched to depo shots and has been on this for 12-13 years now; no periods - tonsils taken out as a kid; no other surgeries - 2 pregnancies; vaginal deliveries; no gestational diabetes or gestational HTN - no immediate family members with colon cancer - no family history of breast/cervical/ovarian cancer in the family History reviewed. No pertinent past medical history. History reviewed. No pertinent surgical history. Family History Problem Relation Name Age of Onset ??? Heart Disease Sister Jennifer Lao Cardiomyopathy Social History Tobacco Use ??? Smoking status: Never Smoker ??? Smokeless tobacco: Never Used Substance Use Topics ??? Alcohol use: Yes Alcohol/week: 6.7 standard drinks Types: 2 Glasses of wine, 2 Cans of beer per week ??? Drug use: Never [employer] was reviewed. Medications: Current Outpatient Medications Medication Sig Dispense Refill ??? cetirizine (ZYRTEC) 10 MG tablet Take 10 mg by mouth daily. No current facility-administered medications for this visit. Allergies: No Known Allergies Review of Systems: An appropriate review of systems was conducted with the pertinent positives and negatives as noted above in the HPI also including: Review of Systems Constitutional: Negative for chills and fever. Respiratory: Negative for cough. Cardiovascular: Negative for palpitations. Gastrointestinal: Negative for abdominal pain, nausea and vomiting. Objective / Physical Exam: Filed Vitals: 11/10/21 0938 BP: 126/74 Pulse: 64 Resp: 18 Temp: 98.6 ??F (37 ??C) TempSrc: Temporal Weight: 101.6 kg (224 lb) Height: 5' 4.5 (1.638 m) Body mass index is 37.86 kg/m??. Physical Exam Vitals reviewed. Constitutional: General: She is not in acute distress. Appearance: Normal appearance. She is well-developed. She is obese. She is not ill-appearing, toxic-appearing or diaphoretic. HENT: Head: Normocephalic and atraumatic. Mouth/Throat: Oropharynx is clear and moist. Eyes: General: Right eye: No discharge. Left eye: No discharge. Extraocular Movements: Extraocular movements intact. Conjunctiva/sclera: Conjunctivae normal. Cardiovascular: Rate and Rhythm: Normal rate and regular rhythm. Pulses: Normal pulses. Heart sounds: Normal heart sounds. No murmur heard. No friction rub. No gallop. Pulmonary: Effort: Pulmonary effort is normal. No respiratory distress. Breath sounds: Normal breath sounds. No wheezing, rhonchi or rales. Abdominal: General: Bowel sounds are normal. There is no distension. Palpations: Abdomen is soft. Tenderness: There is no abdominal tenderness. There is no guarding. Musculoskeletal: Cervical back: Normal range of motion and neck supple. Right lower leg: No edema. Left lower leg: No edema. Skin: General: Skin is warm. Neurological: Mental Status: She is alert and oriented to person, place, and time. Psychiatric: Mood and Affect: Mood normal. Behavior: Behavior normal. Lab / In Office Testing / Radiograph review: No results found for this visit on 11/10/21. Assessment/Plan: 1. Class 2 obesity due to excess calories without serious comorbidity with body mass index (BMI) of37.0 to 37.9 in adult COMPREHENSIVE METABOLIC PANEL LIPID PANEL THYROID STIM HORMONE, TSH ECG 12 lead (Hosp Performed) CBC W/DIFF AUTOMATED HEMOGLOBIN, GLYCOSYLATED USE ECHOCARDIOGRAM W CON CANCELED: CBC W/DIFF AUTOMATED CANCELED: HEMOGLOBIN, GLYCOSYLATED 2. Family history of first-degree relative with cardiomyopathy LIPID PANEL THYROID STIM HORMONE, TSH ECG 12 lead (Hosp Performed) CBC W/DIFF AUTOMATED USE ECHOCARDIOGRAM W CON 3. Dyspnea on exertion ECG 12 lead (Hosp Performed) USE ECHOCARDIOGRAM W CON - her BMI is elevated at 37.86; discussed exercise and Mediterranean diet and provided written information about this - will check labs fasting to make sure no concerns for diabetes, HLD, kidney disease or any thyroidconcerns - EKG and echo ordered as there is a family history of genetic cardiomyopathy in her sister (full sibling); needs screening as she is asymptomatic at this time; has not had genetic testing yet - RTC in 6 weeks for annual physical ADDENDUM: - in her history she did mention that she feels short of breath with exertion; this was added to her diagnoses; she needs an EKG And echo Followup Plan: Return in about 6 weeks (around 12/22/2021) for annual physical. Instructions on the sign/symptoms of worsening problems were given and verbal acknowledgement of understanding was noted. Those present were instructed to call the office during business hours or go to convenient care when the office is closed. If it's an emergency then go to an ER if necessary to address these worsening conditions. The patient verbalized understanding and agreed to the plan. Allquestions answered to the patient's verbalized satisfaction. Patient Instructions I have ordered an EKG. Please have this done at the [facility]. I have also ordered labs to be done fasting. You can either have this done at [facility] as well or you can schedule a nursing visit in 2-3 weeks to have it done here in our office. We will do an annual physical in 6 weeks. Soraya Elias MD Family Medicine [facility] documented in this encounter Plan of Treatment Not on file documented as of this encounter Procedures Procedure Name Priority Date/Time Associated Diagnosis Comments HEMOGLOBIN, GLYCOSYLATED Routine 12/11/2021 8:29 AM CDT Class 2 obesity due to excess calories without serious comorbidity with body mass index (BMI) of 37.0 to 37.9 in adult COMPREHENSIVE METABOLIC PANEL Routine 12/11/2021 8:29 AM CDT Class 2 obesity due to excess calories without serious comorbidity with body mass index (BMI) of 37.0 to 37.9 in adult LIPID PANEL Routine 12/11/2021 8:29 AM CDT Family history of first-degree relative with cardiomyopathy Class 2 obesity due to excess calories without serious comorbidity with body mass index (BMI) of 37.0 to 37.9 in adult CBC W/DIFF AUTOMATED Routine 12/11/2021 8:29 AM CDT Family history of first-degree relative with cardiomyopathy Class 2 obesity due to excess calories without serious comorbidity with body mass index (BMI) of 37.0 to 37.9 in adult THYROID STIM HORMONE TSH Routine 12/11/2021 8:29 AM CDT Family history of first-degree relative with cardiomyopathy Class 2 obesity due to excess calories without serious comorbidity with body mass index (BMI) of 37.0 to 37.9 in adult documented in this encounter Results * USE ECHOCARDIOGRAM W CON (01/06/2022 4:10 PM [employer]) Anatomical Region Laterality Modality NA Echocardiogram 01/06/2022 3:20 PM [employer] Narrative 01/07/2022 10:55 AM [employer]PER[employer]OR ?Echocardiography Report Pat.Name: ??ISMAEL DIAZ ? Pat.ID: ?[id number] ? St.Date: ?? 01/06/2022 ? Refer.MD: ??[id number] DEVASENATHIPATHY BAVITHIRA A ? EWDPROV ?? EWDPR Exam Time: 3:20:00 PM ? Study Type:ECHO WITH CARDIAC DOPPLER COMP Height: ?64 in ? Weight: ?224 lb ?BSA: ? 2.05 m2 ?Age: ??1980,41Y ?Sex: ? F ? BP: ?130/95 ?HR: ?97 bpm ? Sonogrphr: Emily Sarmiento [facility] Pat. Stat.:Outpatient ? Reason for Study:Family history of genetic cardiomyopathy-first degree relative Procedures: 2D, M-mode, Doppler, Color Flow, Definity was used to enhance endocardial definition. The study quality is technically difficult. Race: ?W ? ++++++++++++++++++++++++++++++++++++ SUMMARY: ++++++++++++++++++++++++++++++++++++ The left ventricular size is normal. The left ventricular systolic function is lower limits of normal. Estimated left ventricular ejection fraction is 50-55%. There are no significant valvular abnormalities. ++++++++++++++++++++++++++++++++++++ FINDINGS: ++++++++++++++++++++++++++++++++++++ LV: ? The left ventricular size is normal. The left ventricular ?systolic function is lower limits of normal. Estimated left ?ventricular ejection fraction is 50-55%. There is no left ?ventricular hypertrophy. Left ventricular diastolic function ?is normal. WM: ? Wall motion appears normal in all segments. LVOT: ? The left ventricular outflow tract size is normal. RV: ? The right ventricular size is normal. Right ventricular ?systolic function is normal. IVS: ?No evidence of ventricular septal defect. LA: ? The left atrial size is normal. The left atrial volume is ?normal ( less than 34 ml/M2). RA: ? Right atrial size is normal. IAS: ?Atrial septum appears intact. CHERYL: ? No evidence of pericardial effusion. Prominent pericardial ?fat pad visualized. AO: ? Normal aortic root. PA: ? Estimated right atrial pressure of 3 mmHg. SVn: ?Systemic veins are normal. AV: ? The aortic valve is trileaflet. No evidence of aortic valve ?stenosis. No evidence of aortic valve regurgitation. MV: ? Trace mitral regurgitation. No evidence of mitral stenosis. PV: ? No evidence of pulmonic valve stenosis. No evidence of ?pulmonic regurgitation. TV: ? A trace of tricuspid regurgitation. Right ventricular ?systolic pressure is <35 mmHg. No evidence of tricuspid ?valve stenosis. ++++++++++++++++++++++++++++++++++++ MEASUREMENTS: ++++++++++++++++++++++++++++++++++++ ?DOPPLER LVOT ?? LVOTpkPG ? 2.6 mmHg ?LVOTmnPG ?1.65 mmHg LVOTpkVel ? 80.6 cm/s (70-110)+ LVOT CO ? 5.54 l/min LVOT TVI ?14.4 cm ? MV Forward Flow MV DeTm ?223 ms ?MV E/A ? 0.596 ? MVA P1/2t ? 3.41 cm2 ??(4-6)* ?? MV pkE ?53.2 cm/s (60-130)* MV P1/2t ?64.6 ms ?? (30-60)* MV pkA ?89.2 cm/s TV Regurg Flow TV pkPG ? 26 mmHg ? TV pkVel ? 255 cm/s (30-70)+* TV Forward Flow TV pkE ?45.3 cm/s ? Lat E' ?? Lat e ? 10.5 cm/s ? Lat E/E' ?? Lat E/e ? 5.06 ? Med E' ?? Med e ? 6.52 cm/s ? Med E/E' ?? Med E/e ? 8.16 ? Left Ventricle ?? LV IVRT ? 95.3 ms ?Composite heart ?? 100 bpm Left Ventricula ?? 138 mmHg ? Mitral Valve ?? Decel Oliver ?233 cm/s2 ? Mitral Valve A ?? 1.68 ? HR ?93 bpm ? Pulmonic Valve ?? AC ?99.5 ms ?Peak Velocity ?113 cm/s PG pk ? 5.09 mmHg ? Tricuspid Valve ?? TV Free Wall Sa ??12.1 cm/s ? TV A pk Bina ? 38.8 cm/s HR ?93 bpm ?2D Left Ventricle ?? LV CI ? 1.91 l/min/m2 ?LV vol d MOD A2 ?? 4.8 cm ?? LVIDd ? 4.72 cm ?? (4.3-5.1) LV vol d MOD A2 ??4.71 cm ?? LVIDs ?3.9 cm ?? (2-4) ?LV vol d MOD A4 ?? 4.2 cm ?? LV%fs ? 17.3 % ?(25-46)* LV vol d MOD A4 ??4.38 cm ?? LV CI ? 2.05 l/min/m2 ?LV vol d MOD A4 ??4.44 cm ?? LV CI ? 2.57 l/min/m2 ?LV vol d MOD A4 ??4.41 cm ?? LV CO ? 4.21 l/min ? LV vol d MOD A4 ??4.32 cm ?? LV CO ? 5.27 l/min ? LV vol d MOD A4 ?? 4.2 cm ?? LV CO BP ?5.03 l/min ? LV vol d MOD A4 ??4.05 cm ?? LV SV ? 45.6 ml ?LV vol d MOD A4 ??3.78 cm ?? LV SV ? 58.9 ml ?LV vol d MOD A4 ??3.33 cm ?? LV SV BP ?55.2 ml ?LV vol d MOD A4 ??2.79 cm ?? IVS %th ?0.651 % ? LV vol d MOD A4 ??2.13 cm ?? IVSs ? 0.996 cm ?LV vol d MOD A4 0.841 cm ?? Left Ventricle ?8.3 cm ? LV vol d MOD A4 ??4.59 cm ?? Left Ventricle ?? 8.84 cm ? LV vol d MOD A4 ?? 4.8 cm ?? LVPW%th ? 37 % ? LV vol d MOD A4 ??5.01 cm ?? LVPWs ? 1.24 cm ?LV vol d MOD A4 ?? 5.1 cm ?? LV Semi-major A ??5.71 cm ? LV vol d MOD A4 ??5.04 cm ?? Left Ventricle ?? 7.43 cm ? LV vol d MOD A4 ??4.89 cm ?? Left Ventricle ?? 7.28 cm ? LV vol d MOD A4 ??4.68 cm ?? Left Ventricle ?? 7.43 cm ? LV vol d MOD A4 ??4.53 cm ?? LV Trunc Semi-m ??3.13 cm ? LV vol s MOD A2 ??2.29 cm ?? LV Area hale ?32.5 cm2 ? LV vol s MOD A2 ??3.01 cm ?? LV Area hale ?36.2 cm2 ? LV vol s MOD A2 ??3.25 cm ?? LVA% ?29.5 % ? LV vol s MOD A2 ??3.13 cm ?? LVA% ?35.6 % ? LV vol s MOD A2 ??2.95 cm ?? LV Area sys ? 22.9 cm2 ? LV vol s MOD A2 ??2.71 cm ?? LV Area sys ? 23.3 cm2 ? LV vol s MOD A2 ??2.56 cm ?? LV EF ? 43.7 % ? LV vol s MOD A2 ??2.47 cm ?? LV EF ? 48.5 % ? LV vol s MOD A2 ??2.26 cm ?? LV EF BP ?47.8 % ? LV vol s MOD A2 ??1.87 cm ?? LV EDV ? 104 ml ?LV vol s MOD A2 ??1.56 cm ?? LV EDV ? 121 ml ?LV vol s MOD A2 0.812 cm ?? LVEDV BP ?56.3 ml/m2 ? LV vol s MOD A2 ??3.25 cm ?? LV ESV ?58.8 ml ?LV vol s MOD A2 ?? 3.4 cm ?? LV ESV ?62.6 ml ?LV vol s MOD A2 ??3.52 cm ?? LVESV BP ?29.4 ml/m2 ? LV vol s MOD A2 ??3.64 cm ?? LV Mass ?0.945 g/cm ?LV vol s MOD A2 ??3.67 cm ?? Minor [place] (Sepideh ??3.82 cm ? LV vol s MOD A2 ??3.76 cm ?? Composite heart ?92 bpm ?LV vol s MOD A2 ??3.58 cm ?? Composite heart ?90 bpm ?LV vol s MOD A2 ??3.37 cm ?? Composite heart ?? 105 bpm ?LV vol s MOD A4 ??3.45 cm ?? Composite heart ?91 bpm ?LV vol s MOD A4 ??3.51 cm ?? Composite heart ?? 105 bpm ?LV vol s MOD A4 ??3.63 cm ?? LV vol d MOD A2 ??3.33 cm ? LV vol s MOD A4 ??3.54 cm ?? LV vol d MOD A2 ??3.96 cm ? LV vol s MOD A4 ??3.45 cm ?? LV vol d MOD A2 ??4.53 cm ? LV vol s MOD A4 ??3.36 cm ?? LV vol d MOD A2 ??4.38 cm ? LV vol s MOD A4 ?? 3.3 cm ?? LV vol d MOD A2 ??4.11 cm ? LV vol s MOD A4 ??3.03 cm ?? LV vol d MOD A2 ??3.93 cm ? LV vol s MOD A4 ??2.79 cm ?? LV vol d MOD A2 ??3.78 cm ? LV vol s MOD A4 ??2.61 cm ?? LV vol d MOD A2 ??3.57 cm ? LV vol s MOD A4 ??1.98 cm ?? LV vol d MOD A2 ??3.33 cm ? LV vol s MOD A4 ??0.93 cm ?? LV vol d MOD A2 ??3.03 cm ? LV vol s MOD A4 ??3.78 cm ?? LV vol d MOD A2 ??2.61 cm ? LV vol s MOD A4 ??4.14 cm ?? LV vol d MOD A2 ??1.44 cm ? LV vol s MOD A4 ?? 4.5 cm ?? LV vol d MOD A2 ??4.14 cm ? LV vol s MOD A4 ??4.77 cm ?? LV vol d MOD A2 ??4.23 cm ? LV vol s MOD A4 ??4.89 cm ?? LV vol d MOD A2 ??4.38 cm ? LV vol s MOD A4 ??4.29 cm ?? LV vol d MOD A2 ??4.53 cm ? LV vol s MOD A4 ??3.93 cm ?? LV vol d MOD A2 ??4.68 cm ? LV vol s MOD A4 ??3.72 cm ?? LV vol d MOD A2 ??4.71 cm ? LVPW ?? LVPWd ?0.903 cm ? Left Atrium ?? LA VOLBP ?31.2 ml ?Major [place] (Sys ??4.95 cm ?? Eagle Disk Nu ? 9 ?Major [place] (Sys ??4.46 cm ?? Ratios ?? IVS Ventricular Septum ?? IVSd ? 0.989 cm ? Aorta ?? AO Dd ? 3.49 cm ? LV Area-Length Biplane LVEDV ?113 ml ?LVESV ? 61.3 ml ?? LV Area-Length Single Plane LVEDV ?108 ml ?LVESV ? 60.3 ml ?? LVEDV ?126 ml ?LVESV ? 63.5 ml ?? LVOT ?? LVOTArea ?3.82 cm2 ? Cardiovascular ?? 2.21 cm ?? Right Atrium ?? Major [place] (Sys ??4.91 cm ? Eagle Disk Nu ? 9 ? HR ?92 bpm ? RA Area-Length Single Plane Volume (Systole ??22.8 ml/m2 ? RA Single Plane RA sys Area ? 16.5 cm2 ? Volume (Systole ??41.4 ml ?? Right Ventricle ?? RVIDd ? 3.55 cm ?HR ?90 bpm Major [place] (Sepideh ??6.76 cm ? Minor [place] (Sepideh ??2.61 cm ?? RVOT ?? PG pk ? 2.64 mmHg ?Peak Velocity ?? 81.3 cm/s TA ?? Cardiovascular ?3.1 cm ?MMODE Ratios ?? LA/Ao ? 1.24 ?(0.87-1.1)* Aorta ?? Ao Rt ? 3.16 cm ?? (zsc 0.8) Aortic Valve ?? AV sep ? 2 cm ?? (1.5-2.6) PG pk ? 7.53 mmHg AC ?74.6 ms ?Peak Velocity ?137 cm/s HR ?94 bpm ? VTI ?0.211 m ?? PG mean ? 4.76 mmHg ?AV ET ?201 ms ?? Mean Velocity ?105 cm/s ?AV AC/ET ? 0.371 ? Left Atrium ?? LAIDs ? 3.92 cm ?End Diastolic A 0.806 ? AV Continuity Equation by Mean Velocity Orf Area ?2.25 cm2 ? AV Continuity Equation by Peak Velocity Orf Area ?1.09 square centimeters/square meter Area ?2.25 cm2 AV Continuity Equation by Velocity Time Integral Orf Area ?1.27 square centimeters/square meter Area ?2.61 cm2 Left Ventricle ?? Heart Rate-Toño ?? 352 ms ? Composite HR fo ?94 bpm Composite heart ?94 bpm ? Pulmonary Veins ?? Pul Vn A Dur ?95.3 ms ?Pul Vn sys Vmax ??40.7 cm/s Pul Vein Atrial ??38.1 cm/s ? Pul Vn sys/hale ??1.29 ? Pul Vn Hale Pk ?? 31.6 cm/s ? Tricuspid Valve ?? Tricuspid annul ??2.66 cm ? Vena Cava ?? IVC Diam ?1.39 cm ? <Electronic Signature> 01/07/2022 10:55 AM Yoandy Cardozo M.D. Procedure Note Yoandy Cardozo MD - 01/07/2022 Echocardiography Report Pat.Name: ISMAEL DIAZ Pat.ID: [id number] .Date: 01/06/2022 Refer.MD: [id number] [facility] S[facility] Lewis EWDPROV EWDPR Exam Time: 3:20:00 PM Study Type:ECHO WITH CARDIAC DOPPLER COMP Height: 64 in Weight: 224 lb BSA: 2.05 m2 Age: 12 1980,41Y Sex: F BP: 130/95 HR: 97 bpm Sonogrphr: Emily Sarmiento [facility] Pat. Stat.:Outpatient Reason for Study:Family history of genetic cardiomyopathy-first degree relative Procedures: 2D, M-mode, Doppler, Color Flow, Definity was used to enhance endocardial definition. The study quality is technically difficult. Race: W ++++++++++++++++++++++++++++++++++++ SUMMARY: ++++++++++++++++++++++++++++++++++++ The left ventricular size is normal. The left ventricular systolic function is lower limits of normal. Estimated left ventricular ejection fraction is 50-55%. There are no significant valvular abnormalities. ++++++++++++++++++++++++++++++++++++ FINDINGS: ++++++++++++++++++++++++++++++++++++ LV: The left ventricular size is normal. The left ventricular systolic function is lower limits of normal. Estimated left ventricular ejection fraction is 50-55%. There is no left ventricular hypertrophy. Left ventricular diastolic function is normal. WM: Wall motion appears normal in all segments. LVOT: The left ventricular outflow tract size is normal. RV: The right ventricular size is normal. Right ventricular systolic function is normal. IVS: No evidence of ventricular septal defect. LA: The left atrial size is normal. The left atrial volume is normal ( less than 34 ml/M2). RA: Right atrial size is normal. IAS: Atrial septum appears intact. CHERYL: No evidence of pericardial effusion. Prominent pericardial fat pad visualized. AO: Normal aortic root. PA: Estimated right atrial pressure of 3 mmHg. SVn: Systemic veins are normal. AV: The aortic valve is trileaflet. No evidence of aortic valve stenosis. No evidence of aortic valve regurgitation. MV: Trace mitral regurgitation. No evidence of mitral stenosis. PV: No evidence of pulmonic valve stenosis. No evidence of pulmonic regurgitation. TV: A trace of tricuspid regurgitation. Right ventricular systolic pressure is <35 mmHg. No evidence of tricuspid valve stenosis. ++++++++++++++++++++++++++++++++++++ MEASUREMENTS: ++++++++++++++++++++++++++++++++++++ DOPPLER LVOT LVOTpkPG 2.6 mmHg LVOTmnPG 1.65 mmHg LVOTpkVel 80.6 cm/s (70-110)+ LVOT CO 5.54 l/min LVOT TVI 14.4 cm MV Forward Flow MV DeTm 223 ms MV E/A 0.596 MVA P1/2t 3.41 cm2 (4-6)* MV pkE 53.2 cm/s (60-130)* MV P1/2t 64.6 ms (30-60)* MV pkA 89.2 cm/s TV Regurg Flow TV pkPG 26 mmHg TV pkVel 255 cm/s (30-70)+* TV Forward Flow TV pkE 45.3 cm/s Lat E' Lat e 10.5 cm/s Lat E/E' Lat E/e 5.06 Med E' Med e 6.52 cm/s Med E/E' Med E/e 8.16 Left Ventricle LV IVRT 95.3 ms Composite heart 100 bpm Left Ventricula 138 mmHg Mitral Valve Decel Oliver 233 cm/s2 Mitral Valve A 1.68 HR 93 bpm Pulmonic Valve AC 99.5 ms Peak Velocity 113 cm/s PG pk 5.09 mmHg Tricuspid Valve TV Free Wall Sa 12.1 cm/s TV A pk Bina 38.8 cm/s HR 93 bpm 2D Left Ventricle LV CI 1.91 l/min/m2 LV vol d MOD A2 4.8 cm LVIDd 4.72 cm (4.3-5.1) LV vol d MOD A2 4.71 cm LVIDs 3.9 cm (2-4) LV vol d MOD A4 4.2 cm LV%fs 17.3 % (25-46)* LV vol d MOD A4 4.38 cm LV CI 2.05 l/min/m2 LV vol d MOD A4 4.44 cm LV CI 2.57 l/min/m2 LV vol d MOD A4 4.41 cm LV CO 4.21 l/min LV vol d MOD A4 4.32 cm LV CO 5.27 l/min LV vol d MOD A4 4.2 cm LV CO BP 5.03 l/min LV vol d MOD A4 4.05 cm LV SV 45.6 ml LV vol d MOD A4 3.78 cm LV SV 58.9 ml LV vol d MOD A4 3.33 cm LV SV BP 55.2 ml LV vol d MOD A4 2.79 cm IVS %th 0.651 % LV vol d MOD A4 2.13 cm IVSs 0.996 cm LV vol d MOD A4 0.841 cm Left Ventricle 8.3 cm LV vol d MOD A4 4.59 cm Left Ventricle 8.84 cm LV vol d MOD A4 4.8 cm LVPW%th 37 % LV vol d MOD A4 5.01 cm LVPWs 1.24 cm LV vol d MOD A4 5.1 cm LV Semi-major A 5.71 cm LV vol d MOD A4 5.04 cm Left Ventricle 7.43 cm LV vol d MOD A4 4.89 cm Left Ventricle 7.28 cm LV vol d MOD A4 4.68 cm Left Ventricle 7.43 cm LV vol d MOD A4 4.53 cm LV Trunc Semi-m 3.13 cm LV vol s MOD A2 2.29 cm LV Area hale 32.5 cm2 LV vol s MOD A2 3.01 cm LV Area hale 36.2 cm2 LV vol s MOD A2 3.25 cm LVA% 29.5 % LV vol s MOD A2 3.13 cm LVA% 35.6 % LV vol s MOD A2 2.95 cm LV Area sys 22.9 cm2 LV vol s MOD A2 2.71 cm LV Area sys 23.3 cm2 LV vol s MOD A2 2.56 cm LV EF 43.7 % LV vol s MOD A2 2.47 cm LV EF 48.5 % LV vol s MOD A2 2.26 cm LV EF BP 47.8 % LV vol s MOD A2 1.87 cm LV EDV 104 ml LV vol s MOD A2 1.56 cm LV EDV 121 ml LV vol s MOD A2 0.812 cm LVEDV BP 56.3 ml/m2 LV vol s MOD A2 3.25 cm LV ESV 58.8 ml LV vol s MOD A2 3.4 cm LV ESV 62.6 ml LV vol s MOD A2 3.52 cm LVESV BP 29.4 ml/m2 LV vol s MOD A2 3.64 cm LV Mass 0.945 g/cm LV vol s MOD A2 3.67 cm Minor [place] (Sepideh 3.82 cm LV vol s MOD A2 3.76 cm Composite heart 92 bpm LV vol s MOD A2 3.58 cm Composite heart 90 bpm LV vol s MOD A2 3.37 cm Composite heart 105 bpm LV vol s MOD A4 3.45 cm Composite heart 91 bpm LV vol s MOD A4 3.51 cm Composite heart 105 bpm LV vol s MOD A4 3.63 cm LV vol d MOD A2 3.33 cm LV vol s MOD A4 3.54 cm LV vol d MOD A2 3.96 cm LV vol s MOD A4 3.45 cm LV vol d MOD A2 4.53 cm LV vol s MOD A4 3.36 cm LV vol d MOD A2 4.38 cm LV vol s MOD A4 3.3 cm LV vol d MOD A2 4.11 cm LV vol s MOD A4 3.03 cm LV vol d MOD A2 3.93 cm LV vol s MOD A4 2.79 cm LV vol d MOD A2 3.78 cm LV vol s MOD A4 2.61 cm LV vol d MOD A2 3.57 cm LV vol s MOD A4 1.98 cm LV vol d MOD A2 3.33 cm LV vol s MOD A4 0.93 cm LV vol d MOD A2 3.03 cm LV vol s MOD A4 3.78 cm LV vol d MOD A2 2.61 cm LV vol s MOD A4 4.14 cm LV vol d MOD A2 1.44 cm LV vol s MOD A4 4.5 cm LV vol d MOD A2 4.14 cm LV vol s MOD A4 4.77 cm LV vol d MOD A2 4.23 cm LV vol s MOD A4 4.89 cm LV vol d MOD A2 4.38 cm LV vol s MOD A4 4.29 cm LV vol d MOD A2 4.53 cm LV vol s MOD A4 3.93 cm LV vol d MOD A2 4.68 cm LV vol s MOD A4 3.72 cm LV vol d MOD A2 4.71 cm LVPW LVPWd 0.903 cm Left Atrium LA VOLBP 31.2 ml Major [place] (Sys 4.95 cm Eagle Disk Nu 9 Major [place] (Sys 4.46 cm Ratios IVS Ventricular Septum IVSd 0.989 cm Aorta AO Dd 3.49 cm LV Area-Length Biplane LVEDV 113 ml LVESV 61.3 ml LV Area-Length Single Plane LVEDV 108 ml LVESV 60.3 ml LVEDV 126 ml LVESV 63.5 ml LVOT LVOTArea 3.82 cm2 Cardiovascular 2.21 cm Right Atrium Major [place] (Sys 4.91 cm Eagle Disk Nu 9 HR 92 bpm RA Area-Length Single Plane Volume (Systole 22.8 ml/m2 RA Single Plane RA sys Area 16.5 cm2 Volume (Systole 41.4 ml Right Ventricle RVIDd 3.55 cm HR 90 bpm Major [place] (Sepideh 6.76 cm Minor [place] (Sepideh 2.61 cm RVOT PG pk 2.64 mmHg Peak Velocity 81.3 cm/s TA Cardiovascular 3.1 cm MMODE Ratios LA/Ao 1.24 (0.87-1.1)* Aorta Ao Rt 3.16 cm (zsc 0.8) Aortic Valve AV sep 2 cm (1.5-2.6) PG pk 7.53 mmHg AC 74.6 ms Peak Velocity 137 cm/s HR 94 bpm VTI 0.211 m PG mean 4.76 mmHg AV ET 201 ms Mean Velocity 105 cm/s AV AC/ET 0.371 Left Atrium LAIDs 3.92 cm End Diastolic A 0.806 AV Continuity Equation by Mean Velocity Orf Area 2.25 cm2 AV Continuity Equation by Peak Velocity Orf Area 1.09 square centimeters/square meter Area 2.25 cm2 AV Continuity Equation by Velocity Time Integral Orf Area 1.27 square centimeters/square meter Area 2.61 cm2 Left Ventricle Heart Rate-Toño 352 ms Composite HR fo 94 bpm Composite heart 94 bpm Pulmonary Veins Pul Vn A Dur 95.3 ms Pul Vn sys Vmax 40.7 cm/s Pul Vein Atrial 38.1 cm/s Pul Vn sys/hale 1.29 Pul Vn Hale Pk 31.6 cm/s Tricuspid Valve Tricuspid annul 2.66 cm Vena Cava IVC Diam 1.39 cm <Electronic Signature> 01/07/2022 10:55 AM Yoandy Cardozo M.D. Soraya Elias MD ECHO Final Result * (ABNORMAL) HEMOGLOBIN, GLYCOSYLATED (12/11/2021 8:29 AM CDT) [facility] HGB A1C 5.5 4.5 - 6.2 % 12/12/2021 1:11 PM CDT [facility] ESTIMATED AVG GLUCOSE 111(H) 74 - 106 MG/DL 12/12/2021 1:11 PM CDT [facility] 12/11/2021 8:29 AM CDT Soraya Elias MD LABORATORY Final Result [facility] [address] [place] [address], * CBC W/DIFF AUTOMATED (12/11/2021 8:29 AM CDT) Pathologist [facility] WBC 9.6 4.0 - 10.8 x10'3/uL 12/11/2021 2:16 PM CDT [facility] RBC 4.81 4.10 - 5.40 x10'6/uL 12/11/2021 2:16 PM CDT [facility] HGB 14.8 12.0 - 16.0 G/DL 12/11/2021 2:16 PM CDT [facility] HCT 44.3 36.0 - 47.0 % 12/11/2021 2:16 PM CDT [facility] MCV 92.1 78.0 - 100.0 FL 12/11/2021 2:16 PM CDT [facility] MCH 30.8 27.0 - 31.0 PG 12/11/2021 2:16 PM CDT [facility] MCHC 33.4 33.0 - 36.0 G/DL 12/11/2021 2:16 PM CDT [facility] RDW 12.0 11.5 - 14.5 % 12/11/2021 2:16 PM CDT [facility] PLT 350 150 - 350 x10'3/uL 12/11/2021 2:16 PM CDT [facility] MPV 9.9 7.4 - 10.4 FL 12/11/2021 2:16 PM CDT [facility] DIFFERENTIAL TYPE AUTOMATED DIFFERENTIAL 12/11/2021 2:16 PM CDT [facility] NEUTROPHILS % 64.9 % 12/11/2021 2:16 PM CDT [facility] LYMPHOCYTES % 27.2 % 12/11/2021 2:16 PM CDT [facility] MONOCYTES % 5.4 % 12/11/2021 2:16 PM CDT [facility] EOSINOPHILS % 1.8 % 12/11/2021 2:16 PM CDT [facility] BASOPHILS % 0.4 % 12/11/2021 2:16 PM CDT [facility] IMMATURE GRANS % 0.3 % 12/11/2021 2:16 PM CDT [facility] ABS. NEUTROPHILS 6.21 1.60 - 8.30 x10'3/uL 12/11/2021 2:16 PM CDT [facility] ABS. LYMPHOCYTES 2.61 0.80 - 4.70 x10'3/uL 12/11/2021 2:16 PM CDT [facility] ABS. MONOCYTES 0.52 0.00 - 1.50 x10'3/uL 12/11/2021 2:16 PM CDT [facility] ABS. EOSINOPHILS 0.17 0.00 - 0.40 x10'3/uL 12/11/2021 2:16 PM CDT [facility] ABS. BASOPHILS 0.04 0.00 - 0.20 x10'3/uL 12/11/2021 2:16 PM CDT [facility] ABS. IMMATURE GRANULOCYTES 0.03 0.00 - 0.03 x10'3/uL 12/11/2021 2:16 PM CDT [facility] 12/11/2021 8:29 AM CDT Soraya Elias MD LABORATORY Final Result Performing Organization Address City/[facility]/ZIP Co de Phone Number [address] [address], * THYROID STIM HORMONE, TSH (12/11/2021 8:29 AM CDT) TSH 3.488 0.358 - 3.740 uIU/ML 12/11/2021 3:18 PM CDT [facility] 12/11/2021 8:29 AM CDT us Soraya Elias MD LABORATORY Final Result Performing Organization Address City/[facility]/ZIP Co de Phone Number [address] [address], [place] [phone] * (ABNORMAL) LIPID PANEL (12/11/2021 8:29 AM CDT) Pathologist [facility] CHOLESTEROL 244 MG/DL 12/11/2021 3:18 PM CDT [facility] TRIGLYCERIDES 150(H) <150 MG/DL 12/11/2021 3:18 PM CDT [facility] HDL 51 >40 MG/DL 12/11/2021 3:18 PM CDT [facility] LDL-C 163 MG/DL 12/11/2021 3:18 PM CDT [facility] VLDL CALCULATION 30 MG/DL 12/12/19 3:18 PM CDT [facility] CHOL/HDL RATIO 4.8 12/11/2021 3:18 PM CDT [facility] LDL/HDL 3.2 12/11/2021 3:18 PM CDT [facility] NON HDL CHOLESTEROL 193 MG/DL 12/11/2021 3:18 PM CDT [facility] 12/11/2021 8:29 AM CDT Soraya Elias MD LABORATORY Final Result [facility] [address] [place] [address], [place] [phone] * (ABNORMAL) COMPREHENSIVE METABOLIC PANEL (12/11/2021 8:29 AM CDT) SODIUM S/P/B 138 136 - 145 MMOL/L 12/11/2021 3:18 PM CDT [facility] POTASSIUM S/P/B 4.7 3.5 - 5.1 MMOL/L 12/11/2021 3:18 PM CDT [facility] CHLORIDE S/P/B 105 98 - 107 MMOL/L 12/11/2021 3:18 PM CDT [facility] CO2 27.0 21 - 32 MMOL/L 12/11/2021 3:18 PM CDT [facility] GLUCOSE 129(H) 70 - 99 MG/DL 12/11/2021 3:18 PM CDT [facility] BUN 11 7 - 18 MG/DL 12/11/2021 3:18 PM T [facility] CREATININE S/P/B 0.87 0.55 - 1.02 MG/DL 12/11/2021 3:18 PM CDT [facility] CALCIUM S/P/B 9.5 8.4 - 10.5 MG/DL 12/11/2021 3:18 PM CDT [facility] BILIRUBIN TOTAL S/P/B 0.6 0.2 - 1.0 MG/DL 12/11/2021 3:18 PM T [facility] ALKALINE PHOSPHATASE S/P/B 64 37 - 98 U/L 12/11/2021 3:18 PM CDT [facility] AST 32 15 - 37 U/L 12/11/2021 3:18 PM CDT [facility] ALT 81(H) 14 - 59 U/L 12/11/2021 3:18 PM T [facility] TOTAL PROTEIN S/P/B 7.0 6.4 - 8.2 G/DL 12/11/2021 3:18 PM T [facility] ALBUMIN S/P/B 4.0 3.4 - 5.0 G/DL 12/11/2021 3:18 PM T [facility] ANION GAP 6.0 5 - 15 MMOL/L 12/11/2021 3:18 PM T [facility] Comment:REFERENCE RANGE NOT ESTABLISHED OSMOLALITY (CALC) 287 MOSM/KG 022 3:18 PM T [facility] Comment:REFERENCE RANGE NOT ESTABLISHED GFR ESTIMATE 86(L) >90 ML/MIN/1. 73 M2 12/11/2021 3:18 PM T [facility] GFR NOTES GFR REFERENCE S: 12/11/2021 3:18 PM CDT [facility] Comment: THE ESTIMATED GFR IS CALCULATED USING [...] ml/min/1.73 m2 G5,KIDNEY FAILURE: <15 ml/min/1.73 m2 12/11/2021 8:29 AM CDT Soraya Elias MD LABORATORY Final Result [facility] [address] [facility] [place] [address], [place] [phone] documented in this encounter Visit Diagnoses Diagnosis Class 2 obesity due to excess calories without serious comorbidity with body mass index (BMI) of 37.0 to 37.9 in adult- Primary Family history of first-degree relative with cardiomyopathy Family history of other cardiovascular diseases Dyspnea on exertion Other dyspnea and respiratory abnormality Family history of first-degree relative with cardiomyopathy Family history of other cardiovascular diseases Class 2 obesity due to excess calories without serious comorbidity with body mass index (BMI) of 37.0 to 37.9 in adult Dyspnea on exertion Other dyspnea and respiratory abnormality documented in this encounter Care Teams Terminal Carman Relationship Specialty Start Date End Date Soraya Elias MD PCP - General FAMILY PRACTICE 11/10/21 08/01/22 documented as of this encounter
--- OUTSIDE RECORDS SUMMARY | 2024-03-01 20:35 | XMS_ITS | Encounter Summary ---
Author Organization [facility] Address [address] [place] [address]. [place] [address] Care Team Providers Care Receivable Clerk Name Role Phone Soraya Elias MD Primary Care Pr ovider Unavailable Reason for Referral * Imaging (Routine) - Closed Specialty Diagnoses / Procedures Referred By Deepika hickey Referred To Contact RADIOLOGY Diagnoses Family history of first-degree relative with cardiomyopathy Class 2 obesity due to excess calories without serious comorbidity with body mass index (BMI) of 37.0 to 37.9 in adult Dyspnea on exertion Procedures USE ECHOCARDIOGRAM W Soraya Álvarez MD Referral ID Status Reason Start Date Expiration Date Visits Re quested Visits Authorized [id number] Closed 11/10/2021 11/10/2022 1 1 CTOR OF CONSTRUCTION Reason for Visit * Imaging (Routine) - Closed Specialty Diagnoses / Procedures Referred By Deepika hickey Referred To Contact RADIOLOGY Diagnoses Family history of first-degree relative with cardiomyopathy Class 2 obesity due to excess calories without serious comorbidity with body mass index (BMI) of 37.0 to 37.9 in adult Dyspnea on exertion Procedures USE ECHOCARDIOGRAM W Soraya Álvarez MD Referral ID Status Reason Start Date Expiration Date Visits Re quested Visits Authorized [id number] Closed 11/10/2021 11/10/2022 1 1 Encounter Details Date Type Department Care Team (Late st Contact Info) Description 01/06/2022 2:33 PM DIRECTOR OF CONSTRUCTION - 01/06/2022 11:59 PM DIRECTOR OF CONSTRUCTION Hospital Encounter [facility] [place] [address] Soraya Elias MD Discharge Disposition: Home or [...] Coronavirus/COVID-19? No / Unsure 01/06/2022 2:31 PM DIRECTOR OF CONSTRUCTION documented as of this encounter Medications at [...] Procedure Name Priority Date/Time Associated Diagnosis Comments USE ECHOCARDIOGRAM W CON Routine 01/06/2022 4:10 PM DIRECTOR OF CONSTRUCTION Family history of first-degree relative with cardiomyopathy Class 2 obesity due to excess calories without serious comorbidity with body mass index (BMI) of 37.0 to 37.9 in adult Dyspnea on exertion documented in this encounter Results * USE ECHOCARDIOGRAM W CON (01/06/2022 4:10 PM DIRECTOR OF CONSTRUCTION) Anatomical Region Laterality Modality NA Echocardiogram 01/06/2022 3:20 PM DIRECTOR OF CONSTRUCTION Narrative 01/07/2022 10:55 AM DIRECTOR OF CONSTRUCTION ?Echocardiography Report Pat.Name: ??ANGELA DIAZ ? Pat.ID: ?[id number] ? St.Date: ?? 01/06/2022 ? Refer.MD: ??[id number] DEVASENATHIPATHY SORAYA Lewis ? EWDPROV ?? EWDPR Exam Time: 3:20:00 PM ? Study Type:ECHO WITH CARDIAC DOPPLER COMP Height: ?64 in ? Weight: ?224 lb ?BSA: ? 2.05 m2 ?Age: ??1980,41Y ?Sex: ? F ? BP: ?130/95 ?HR: ?97 bpm ? Sonogrphr: Emily Sarmiento RDCS, NAHID Pat. Stat.:Outpatient ? Reason for Study:Family history [...] 138 mmHg ? Mitral Valve ?? Decel Page ?233 cm/s2 ? Mitral Valve A ?? [...] s MOD A2 ??3.67 cm ?? Minor [place] (Sepideh ??3.82 cm ? LV vol s [...] Atrium ?? LA VOLBP ?31.2 ml ?Major [place] (Sys ??4.95 cm ?? Eagle Disk Nu ? 9 ?Major [place] (Sys ??4.46 cm ?? Ratios ?? IVS [...] 2.21 cm ?? Right Atrium ?? Major [place] (Sys ??4.91 cm ? Eagle Disk Nu ? 9 ? HR ?92 bpm ? RA Area-Length Single Plane Volume (Systole ??22.8 ml/m2 ? RA Single Plane RA sys Area ? 16.5 cm2 ? Volume (Systole ??41.4 ml ?? Right Ventricle ?? RVIDd ? 3.55 cm ?HR ?90 bpm Major [place] (Sepideh ??6.76 cm ? Minor [place] (Sepideh ??2.61 cm ?? RVOT ?? PG [...] Cardozo MD - 01/07/2022 Echocardiography Report Pat.Name: ANGELA DIAZ Pat.ID: [id number] St.Date: 01/06/2022 Refer.: [id number] [facility] SOR[facility]A Lewis EWDPROV EWDPR Exam Time: 3:20:00 PM Study Type:ECHO WITH CARDIAC DOPPLER COMP Height: 64 in Weight: 224 lb BSA: 2.05 m2 Age: 12 1980,41Y Sex: F BP: 130/95 HR: 97 bpm Sonogrphr: Emily Sarmiento [facility] Pat. Stat.:Outpatient Reason for Study:Family history of [...] Left Ventricula 138 mmHg Mitral Valve Decel Page 233 cm/s2 Mitral Valve A 1.68 HR [...] vol s MOD A2 3.67 cm Minor [place] (Sepideh 3.82 cm LV vol s MOD [...] Left Atrium LA VOLBP 31.2 ml Major [place] (Sys 4.95 cm Eagle Disk Nu 9 Major [place] (Sys 4.46 cm Ratios IVS Ventricular Septum IVSd 0.989 cm Aorta AO Dd 3.49 cm LV Area-Length Biplane LVEDV 113 ml LVESV 61.3 ml LV Area-Length Single Plane LVEDV 108 ml LVESV 60.3 ml LVEDV 126 ml LVESV 63.5 ml LVOT LVOTArea 3.82 cm2 Cardiovascular 2.21 cm Right Atrium Major [place] (Sys 4.91 cm Eagle Disk Nu 9 HR 92 bpm RA Area-Length Single Plane Volume (Systole 22.8 ml/m2 RA Single Plane RA sys Area 16.5 cm2 Volume (Systole 41.4 ml Right Ventricle RVIDd 3.55 cm HR 90 bpm Major [place] (Sepideh 6.76 cm Minor [place] (Sepideh 2.61 cm RVOT PG pk 2.64 [...] M.D. Soraya Elias MD ECHO Final Result documented in this encounter Visit Diagnoses Diagnosis Family history of first-degree relative with cardiomyopathy Family history of other cardiovascular diseases Class 2 obesity due to excess calories without serious comorbidity with body mass index (BMI) of 37.0 to 37.9 in adult Dyspnea on exertion Other dyspnea and respiratory abnormality documented in this encounter Administered Medications Inactive Administered Medications - up to 3 most recent administrations Medication Order MAR Action Action Date Dose Rate Site perflutren lipid microsphere (DEFINITY) injection 2 mL 2 mL, Intravenous, IMG once as needed, Contrast, 1 dose, Starting on Tue01/06/22 at 1508, Until Tue01/06/22 at 1558, Administer over 30-60 seconds. Follow with 10 mL saline flush. Given 01/06/2022 3:58 PM DIRECTOR OF CONSTRUCTION 2 mLs documented in this encounter Care Teams Receivable Clerk Relationship Specialty Start Date End Date Soraya Elias MD PCP - General FAMILY PRACTICE 11/10/21 08/01/22 documented as of this encounter
--- OUTSIDE RECORDS SUMMARY | 2024-03-01 20:35 | XMS_ITS | Encounter Summary ---
Author Organization [facility] Address [address] [place] [address]. [place], [place] [address] [place] [address] Care Team Providers Care Product Grader Name Role Phone Soraya Elias MD Primary Care Pr ovider Unavailable Reason for Referral * Consultation (Routine) - Closed Specialty Diagnoses / Procedures Referred By Contact Referred To Contact CARDIOLOGY / Cardiology Diagnoses Family history of first-degree relative with cardiomyopathy Genetic predisposition to cardiomyopathy Procedures OFFICE/OUTPT VISIT,NEW,LEVL III OFFICE/OUTPT VISIT,NEW,LEVL IV OFFICE/OUTPT VISIT,NEW,LEVL V OFFICE/OUTPT VISIT,EST,LEVL III OFFICE/OUTPT VISIT,EST,LEVL IV OFFICE/OUTPT VISIT,EST,LEVL V Soraya Elias MD [facility] [address] [place] [address] Phone: tel: fax: Referral ID Status Reason Start Date Expiration Date V isits Requested Visits Authorized [id number] Closed Specialty Services 07/30/2022 08/30/20[address] 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 Will need screening done. Encounter Details Date Type Department Care Team (Late st Contact Info) Description 07/09/2022 WebNotest Message Enc [facility] Multispecialty Care - [place] [address] [facility] [address] [place] [address] Soraya Elias MD [facility] Social History Tobacco Use Types Packs/Day Years [...] as of this encounter Progress Notes * Soraya Elias MD - 07/30/2022 9:37 AM CDT Referral placed to cardiology. She has a genetic variant for dilated cardiomyopathy, however she may or may not develop this in the future. EKG and echo already done and were fine. Referred her to cardiology. Her sister developed DCM and has a defibrillator now. documented in this encounter Plan of Treatment Scheduled Referrals Name Type Priority Associated Diagnoses Orde r Schedule Ambulatory referral to Cardiology, Adult ([facility]) Referral Routine Family history of first-degree relative with cardiomyopathy Genetic predisposition to cardiomyopathy Ordered: 07/30/2022 documented as of this encounter Visit Diagnoses Diagnosis Genetic predisposition to cardiomyopathy- Primary Family history of first-degree relative with cardiomyopathy Family history of other cardiovascular diseases documented in this encounter Care Teams Product Grader Relationship Specialty Start Date End Date Soraya Elias MD PCP - General FAMILY PRACTICE 11/10/21 08/01/22 documented as of this encounter
--- OUTSIDE RECORDS SUMMARY | 2024-03-01 20:35 | XMS_ITS | Encounter Summary ---
Author Organization [facility] Address [address] [place] [address]. [place], [place] [address] [place] [address] Care Team Providers Care News Broadcaster Name Role Phone Soraya Elias MD Primary Care Pr ovider Unavailable Encounter Details Date Type Department Care Team (Latest Contact Info) Description 01/13/2022 Travel Social History Tobacco Use Types Packs/Day [...] Coronavirus/COVID-19? No / Unsure 01/13/2022 8:48 AM ENGINE MANAGER documented as of this encounter Plan of Treatment Not on file documented as of this encounter Visit Diagnoses Not on filedocumented in this encounter Care Teams News Broadcaster Relationship Specialty Start Date End Date Soraya Elias MD PCP - General FAMILY PRACTICE 11/10/21 08/01/22 documented as of this encounter
--- OUTSIDE RECORDS SUMMARY | 2024-03-01 20:35 | XMS_ITS | Encounter Summary ---
Author Organization [facility] Address [facility] [facility]. [place], [place] [address] [place] [address] Care Team Providers Care Associate Professor Of Physics Name Role Phone Tiffanie Malcolm MD Primary Care Provider [phone] Encounter Details Date Type Department Care Team (Late st Contact Info) Description 12/03/2022 [employer] Message [facility] [place] [address] [facility] Payment [facility] Social History Tobacco Use Types Packs/Day Years [...] on filedocumented in this encounter Care Teams Associate Professor Of Physics Relationship Specialty Start Date End Date Tiffanie Malcolm MD [address] [facility] [address] [place] [address] PCP - General INTERNAL MEDICINE 08/02/22 documented as of this encounter
--- OUTSIDE RECORDS SUMMARY | 2024-03-01 20:35 | XMS_ITS | Encounter Summary ---
Author Organization [facility] Address [address] [place] [address]. [place], [place] [address] [place] [address] Care Team Providers Care Spinneret Person Name Role Phone Soraya Elias MD Primary Care Pr ovider Unavailable Tiffanie Malcolm MD Primary Care Provider [phone] Encounter Details Date Type Department Care Team (Late st Contact Info) Description 12/14/2021 Evoinfinityt Message Enc [facility] Medical [facility] Multispecialty Care - [address] [place] [address] Soraya Elias MD Lab Follow Up Social History Tobacco Use Types Packs/Day Years [...] on filedocumented in this encounter Care Teams Spinneret Person Relationship Specialty Start Date End Date Soraya Elias MD PCP - General FAMILY PRACTICE 11/10/21 08/01/22 Tiffanie Malcolm MD [address] [address] PCP - General INTERNAL MEDICINE 08/02/22 documented as of this encounter
--- OUTSIDE RECORDS SUMMARY | 2024-03-01 20:35 | XMS_ITS | Encounter Summary ---
Author Organization [facility] Address [address] [place] [address]. [place], [place] [address] [place] [address] Care Team Providers Care Soda Jerker Name Role Phone Soraya Elias MD Primary Care Pr ovider Unavailable Encounter Details Date Type Department Care Team (Latest Contact Info) Description 11/10/2021 Travel Social History Tobacco Use Types Packs/Day [...] on filedocumented in this encounter Care Teams Soda Jerker Relationship Specialty Start Date End Date Soraya Elias MD PCP - General FAMILY PRACTICE 11/10/21 08/01/22 documented as of this encounter
--- OUTSIDE RECORDS SUMMARY | 2024-03-01 20:35 | XMS_ITS | Encounter Summary ---
Author Organization [facility] Address [address] [place] [address]. [place], [place] [address] [place] [address] Care Team Providers Care Public Relations Assistant Name Role Phone Soraya Elias MD Primary Care Pr ovider Unavailable Encounter Details Date Type Department Care Team (Latest Contact Info) Description 01/06/2022 Travel Social History Tobacco Use Types Packs/Day [...] Coronavirus/COVID-19? No / Unsure 01/06/2022 2:31 PM BASE FILLER documented as of this encounter Plan of Treatment Not on file documented as of this encounter Visit Diagnoses Not on filedocumented in this encounter Care Teams Public Relations Assistant Relationship Specialty Start Date End Date Soraya Elias MD PCP - General FAMILY PRACTICE 11/10/21 08/01/22 documented as of this encounter
--- OUTSIDE RECORDS SUMMARY | 2024-03-01 20:35 | XMS_ITS | Encounter Summary ---
Author Organization [facility] Address [address] [place] [address]. [place], [place] [address] [place] [address] Care Team Providers Care Teleservices Representative Name Role Phone Soraya Elias MD Primary Care Pr ovider Unavailable Encounter Details Date Type Department Care Team (Late st Contact Info) Description 01/13/2022 - 01/13/2022 11:59 PM ADDRESS CHANGE CLERK [facility] [address] [place] [address] Soraya Elias MD Discharge Disposition: Home or [...] Coronavirus/COVID-19? No / Unsure 01/13/2022 8:48 AM ADDRESS CHANGE CLERK documented as of this encounter Medications at [...] on filedocumented in this encounter Care Teams Teleservices Representative Relationship Specialty Start Date End Date Soraya Elias MD PCP - General FAMILY PRACTICE 11/10/21 08/01/22 documented as of this encounter
--- OUTSIDE RECORDS SUMMARY | 2024-03-01 20:35 | XMS_ITS | Clinical Summary ---
Author Organization [facility] Address [address] [place] [address]. [place], [place] [id number] [place] [address] Care Team Providers Care Digital Circuit Designer Name Role Phone Tiffanie Malcolm MD Primary Care Provider [phone] Allergies No known active allergies Medications cetirizine (ZYRTEC) 10 MG tablet Take 1 tablet (10 mg total) by mouth daily. 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 Immunizations Name Administration Dates Next Due Influenza Adult (Generic) 01/18/2020 Family History Medical History Relation Comments Heart Disease Sister 1 Cardiomyopathy Other Sister 2 positive genetic predisposition cardiomyopathy S ister 2 Relation Status Comments Father Alive Maternal Grandmother Alive Mother Alive Sister 1 Alive Sister 2 Alive Social History Tobacco Use Types Packs/Day Years [...] file Not on file Not on file Last Filed Vital Signs Vital Sign Reading Time Taken Comments Blood Pressure 132/80 09/06/2022 10:41 AM CDT Pulse 90 09/06/2022 10:41 AM CDT Temperature 37.2 ??C (98.9 ??F) 07/09/2022 8:49 AM CD T Respiratory Rate 16 07/09/2022 8:49 AM CDT Oxygen Saturation 98% 09/06/2022 10: 41 AM CDT Inhaled Oxygen Concentration - - Weight 101.4 kg (223 lb 9.6 oz) 023 10:41 AM CDT Height 163.8 cm (5' 4.5 ) 09/06/2022 10 :41 AM CDT Body Mass Index 37.79 09/06/2022 10:41 AM CDT Plan of Treatment Health Maintenance Due Date Last Done Comments Cervical Cancer Screening Pa p Smear (Age 30 to 64) Every 3 Years 1980 DTaP, Tdap and Td Vaccines ( 1 - Tdap) 02/15/1999 Hepatitis B Vaccines (1 of 3 - 19+ 3-dose series) 02/15/1999 Cervical Cancer Screening Pa p with HPV Testing (Age 30 to 64) Every 5 Years 02/15/2010 Cervical Cancer Screening wi th HPV 02/15/2010 Annual Physical 01/13/2023 01/13/2022 COVID-19 Vaccine (4 - 2023-2 5 season) 2023 02/23/2021, 05/15/2020, 04/24/2020 Influenza Adult (#1) 2023 01/18/2020 Mammogram Screening 01/24/2025 01/24/2023 Hepatitis C Completed 01/13/2022 HPV Vaccines Aged Out No longer eligi ble based on patient's age to complete this topic Meningococcal Vaccine Aged Out No dori goldy eligible based on patient's age to complete this topic Pneumococcal Vaccine: Pediatrics (0 to 5 Years) and At-Risk Patients (6 to 64 Years) Aged Out No longer eligible b ased on patient's age to complete this topic RSV Immunizations Under 20 Months Aged Out No longer eligible b ased on patient's age to complete this topic Procedures Procedure Name Priority Date/Time Associated Diagnosis Comments MAMMOGRAM GENERIC (SCAN ORDER) 01/24/2023 HEPATITIS C ANTIBODY Routine 01/13/2022 9:55 AM BORDER MEASURER AND CUTTER Annual physical exam Need for hepatitis C screening test from Last 3 Months or Most Recently Relevant to Health Maintenance Results * MAMMOGRAM GENERIC (01/24/2023) Anatomical Region Laterality Modality Other 01/24/2023 us Doc Med Group Scanned SCANNING Final Resu lt * HEPATITIS C ANTIBODY (01/13/2022 9:55 AM BORDER MEASURER AND CUTTER) HEPATITIS C AB NON-REACTI VE NON-REACT BULMARO 01/13/2022 7:29 PM BORDER MEASURER AND CUTTER [facility] Comment: ANTIBODIES TO HCV NOT DETECTED. DOES NOT EXCLUDE THE POSSIBILITY OF EXPOSURE TO HCV. 01/13/2022 9:55 AM BORDER MEASURER AND CUTTER Soraya Elias MD LABORATORY Final Result [facility] [address] [place] [address], [id number] from Last 3 Months or Most Recently Relevant to Health Maintenance Insurance Care Teams Digital Circuit Designer Relationship Specialty Start Date End Date Tiffanie Malcolm MD [address] [facility] [address] [place] [address] PCP - General INTERNAL MEDICINE 08/02/22
--- OUTSIDE RECORDS SUMMARY | 2024-03-01 20:35 | XMS_ITS | Encounter Summary ---
Author Organization [facility] Address [address] [place] [address]. 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 Family history of first-degree relative with cardiomyopathy Procedures OFFICE/OUTPT VISIT,NEW,LEVL III OFFICE/OUTPT VISIT,NEW,LEVL IV OFFICE/OUTPT VISIT,NEW,LEVL V OFFICE/OUTPT VISIT,EST,LEVL III OFFICE/OUTPT VISIT,EST,LEVL IV OFFICE/OUTPT VISIT,EST,LEVL V Soraya Elias MD [facility] [address] [place] [id number] Phone: tel: fax: Referral ID Status Reason Start Date Expiration Date Visits Re quested Visits Authorized [id number] Closed 07/09/2022 07/10/2023 100 100 Scheduling Instructions [facility] if they take her insurance or please find someone that does She has the gene for cardiomyopathy; done through [facility]; sister has genetic cardiomyopathy at a young age and being treated Reason for Visit * Reason Comments Weight Problem Altered Blood Sugar Level IFG Encounter Details Date Type Department Care Team ([facility] Contact Info) Description 07/09/2022 8:40 AM CDT Office Visit [facility] Multispecialty [address] [place] [address] Soraya Elias MD Weight Problem; Altered Blood Sugar Level (IFG) Social History Tobacco Use Types Packs/Day Years [...] Sign Reading Time Taken Comments Blood Pressure 124/86 07/09/2022 8:49 AM CDT Pulse 92 07/09/2022 8:49 AM CDT Temperature 37.2 ??C (98.9 ??F) 07/09/2022 8:49 AM CD T Respiratory Rate 16 07/09/2022 8:49 AM CDT Oxygen Saturation 99% 07/09/2022 8:49 AM CDT Inhaled Oxygen Concentration - - Weight 99.8 kg (220 lb) 07/09/2022 8:49 AM CDT Height 163.8 cm (5' 4.5 ) 07/09/2022 8:49 AM CDT Body Mass Index 37.18 07/09/2022 8:49 AM CDT documented in this encounter Patient Instructions * Patient Instructions* Soraya Elias MD - 07/09/2022 8:40 AM CDT Please call [facility] to see if you can speak to a genetic counselor. I have also referred you to genetics. The referral team will reach out to you. If you do not hear from them, please call the referral phone number I gave you today. Please have your labs done fasting. documented in this encounter Progress Notes * Soraya Elias MD - 07/09/2022 8:40 AM CDT Angela Brady is a 42-year-old female who presents today alone for evaluation of Chief Complaint Patient presents with ??? Weight Problem ??? Altered Blood Sugar Level IFG History of Present Illness: Patient is here today for follow-up on her fasting blood glucose and weight issues -Her fasting blood sugars were elevated at 126 in November 2021 but her A1c was normal at 5.5 -She states that she has cut out some things like drinking wine every night and snacking -She has not had much time to exercise because she is often busy with her kids and getting them to extracurricular activities after school -She will start to incorporate more physical activity to help us -She plans to make more lifestyle changes -Her cholesterol levels were also elevated in November 2021 with an LDL of 163 and triglycerides were slightly elevated 150 -She is not currently on any statin medications we will need to monitor -Last year her sister was diagnosed with cardiomyopathy due to an underlying genetic disorder; it was brought on after she received the COVID-vaccine -She currently had an ICD or pacemaker placed -The patient had genetic testing as a result through [employer] and she is heterozygous for the gene for cardiomyopathy -She has not yet spoken to a genetic counselor through this company but will contact them -She did have an echo done which did not show any significant findings -She has no chest pain, palpitations, shortness of breath, peripheral edema History reviewed. No pertinent past medical history. History reviewed. No pertinent surgical history. Family History Problem Relation Name Age of Onset ??? Heart Disease Sister Jennifer Lao Cardiomyopathy Social History Tobacco Use ??? Smoking status: Never Passive exposure: Past ??? Smokeless tobacco: Never Vaping Use ??? Vaping Use: Never used Substance Use Topics ??? Alcohol use: Yes Alcohol/week: 6.7 standard drinks Types: 2 Glasses of wine, 2 Cans of beer per week ??? Drug use: Never A la [facility] was reviewed. Medications: Current Outpatient Medications Medication Sig Dispense Refill ??? cetirizine (ZYRTEC) 10 MG tablet Take 1 tablet (10 mg total) by mouth daily. ??? medroxyPROGESTERone (DEPO-PROVERA) 150 [...] Respiratory: Negative for cough. Cardiovascular: Negative for leg swelling. Gastrointestinal: Negative for abdominal pain, nausea and vomiting. Objective / Physical Exam: Filed Vitals: 07/09/22 0849 BP: 124/86 Pulse: 92 Resp: 16 Temp: 98.9 ??F (37.2 ??C) TempSrc: Temporal SpO2: 99% Weight: 99.8 kg (220 lb) Height: 5' 4.5 (1.638 m) Body mass index is 37.18 kg/m??. Physical Exam Vitals reviewed. Constitutional: General: She is not in acute distress. Appearance: Normal appearance. She is well-developed. She is obese. She is not ill-appearing, toxic-appearing or diaphoretic. HENT: Head: Normocephalic and atraumatic. Mouth/Throat: Oropharynx is clear and moist. Eyes: General: Right eye: No discharge. Left eye: No discharge. Extraocular Movements: Extraocular movements intact. Conjunctiva/sclera: Conjunctivae normal. Neck: Vascular: No JVD. Cardiovascular: Rate and Rhythm: Normal rate and [...] No edema. Skin: General: Skin is warm. Comments: Has a chronic flat skin lesion on left cheek Neurological: Mental Status: She is alert and oriented to person, place, and time. Psychiatric: Mood and Affect: Mood normal. Behavior: Behavior normal. Lab / In Office Testing / Radiograph review: No results found for this visit on 07/09/22. Assessment/Plan: 1. Elevated fasting glucose COMPREHENSIVE METABOLIC PANEL 2. Elevated ALT measurement COMPREHENSIVE METABOLIC PANEL 3. Dyslipidemia LIPID PANEL COMPREHENSIVE METABOLIC PANEL 4. 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 Family history of first-degree relative with cardiomyopathy Ambulatory referral to Genetics 6. BMI 37.0-37.9, adult LIPID PANEL COMPREHENSIVE METABOLIC PANEL -Based on her labs that were done fasting back in November 2021 she needs her labs repeated; she dideat today and so she will come back for fasting labs -Her blood sugar was elevated at 126, ALT was elevated at 81, triglycerides and LDL were also elevated and will need to be repeated -Her BMI is elevated at 37.18 but over the last few months she has slowly lost some weight; she will continue to work on lifestyle changes that include dietary changes and starting to exercise to further help with weight loss; she wants to focus on lifestyle changes for now -She has a genetic predisposition to cardiomyopathy; her sister was diagnosed last year and has a decreased ejection fraction and had a ICD or pacemaker placed recently -As a result the patient went and got genetic testing done through [employer] [facility] and she is heterozygous for the gene for cardiomyopathy; I advised that she call [employer] to speak to a genetic counselor through their company; I have discussed her results previously with freight flagman and they advised sending her to a nut process helper so a referral was placed today; this will help determine if she needs yearly echocardiograms and what her risk is of developing cardiomyopathy in the future; not sure if this peg recessive gene or dominant gene; at this time her kids have not yet been tested so we will start with genetic testing for her first -The results of her gene testing are under media and her sisters results are also under media I personally spent a total of 35 minutes on the day of the encounter. This includes [id number] and [id number]-face time I provided on the day of the encounter & excludes time spent performing separately reportable services. Followup Plan: Return in about 7 months (around 02/08/2023) for annual physical. Instructions on the sign/symptoms [...] to the patient's verbalized satisfaction. Patient Instructions Please call [facility] [employer] [facility] to see if you can speak to a genetic counselor. I have also referred you to genetics. The referral team will reach out to you. If you do not hear from them, please call the referral phone number I gave you today. Please have your labs done fasting. 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 Family history of first-degree relative with cardiomyopathy Ordered: 07/09/2022 documented as of this encounter Results * (ABNORMAL) COMPREHENSIVE METABOLIC PANEL (07/14/2022 8:09 AM CDT) SODIUM S/P/B 142 136 - 145 MMOL/L 07/14/2022 3:33 PM CDT -[facility] POTASSIUM S/P/B 4.3 3.5 - 5.1 MMOL/L 07/14/2022 3:33 PM CDT -[facility] CHLORIDE S/P/B 107 98 - 107 MMOL/L 07/14/2022 3:33 PM CDT -[facility] CO2 27.8 21 - 32 MMOL/L 07/14/2022 3:33 PM CDT MG-[facility] GLUCOSE 129(H) 70 - 99 MG/DL 07/14/2022 3:33 PM CDT -[facility] BUN 13 7 - 18 MG/DL 07/14/2022 3:33 PM CDT -[facility] CREATININE S/P/B 0.90 0.55 - 1.02 MG/DL 07/14/2022 3:33 PM CDT [facility] CALCIUM S/P/B 9.1 8.4 - 10.5 MG/DL 07/14/2022 3:33 PM T [facility] BILIRUBIN TOTAL S/P/B 0.6 0.2 - 1.0 MG/DL 07/14/2022 3:33 PM T [facility] ALKALINE PHOSPHATASE S/P/B 61 37 - 98 U/L 07/14/2022 3:33 PM CDT [facility] [place] AST 18 15 - 37 U/L 07/14/2022 3:33 PM T [facility] [place] ALT 40 14 - 59 U/L 07/14/2022 3:33 PM T [facility] TOTAL PROTEIN S/P/B 6.9 6.4 - 8.2 G/DL 07/14/2022 3:33 PM T [facility] ALBUMIN S/P/B 3.7 3.4 - 5.0 G/DL 07/14/2022 3:33 PM T [facility] ANION GAP 7.2 5 - 15 MMOL/L 07/14/2022 3:33 PM T [facility] Comment:REFERENCE RANGE NOT ESTABLISHED OSMOLALITY (CALC) 296 MOSM/KG 023 3:33 PM T [facility] Comment:REFERENCE RANGE NOT ESTABLISHED GFR ESTIMATE 82(L) >90 ML/MIN/1. 73 M2 07/14/2022 3:33 PM T [facility] GFR NOTES GFR REFERENCE S: 07/14/2022 3:33 PM T [facility] Comment: THE ESTIMATED GFR IS CALCULATED USING [...] <15 ml/min/1.73 m2 07/14/2022 8:09 AM CDT Soraya Elias MD LABORATORY Final Result [facility] [address] [place] [address], * (ABNORMAL) LIPID PANEL (07/14/2022 8:09 AM CDT) CHOLESTEROL 220(H) <200 MG/DL 07/14/2022 3:33 PM CDT [facility] TRIGLYCERIDES 118 <150 MG/DL 07/14/2022 3:33 PM CDT [facility] HDL 51 >40 MG/DL 07/14/2022 3:33 PM CDT [facility] LDL-C 145(H) <100 MG/DL 07/14/2022 3:33 PM CDT [facility] VLDL CALCULATION 24 5 - 28 MG/DL 07/14/2022 3:33 PM CDT [facility] CHOL/HDL RATIO 4.3(H) 0.0 - 4.0 07/14/2022 3:33 PM CDT [facility] LDL/HDL 2.8(H) 0.41 - 2.13 07/14/2022 3:33 PM CDT [facility] NON HDL CHOLESTEROL 169(H) <140 MG/DL 07/14/2022 3:33 PM CDT [facility] 07/14/2022 8:09 AM CDT Soraya Elias MD LABORATORY Final Result [facility] [place] [place] [address] [facility] [place] [address], documented in this encounter Visit Diagnoses Diagnosis Elevated fasting glucose- Primary Impaired fasting glucose Elevated ALT measurement Nonspecific elevation of levels of transaminase or lactic acid dehydrogenase (LDH) Dyslipidemia Other and unspecified hyperlipidemia 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
--- OUTSIDE RECORDS SUMMARY | 2024-03-01 20:35 | XMS_ITS | Encounter Summary ---
Author Organization [facility] Address [facility]. [place], [place] [address] [place] [address] Care Team Providers Care Product Sales Representative Name Role Phone Tiffanie Malcolm MD Primary Care Provider [phone] Encounter Details Date Type Department Care Team (Latest Contact Info) Description 01/09/2023 Classtingt Message Enc [facility] Multispecialty Care - [place] [address] [address] [place], [place] [phone] Tiffanie Malcolm MD [address] [place] [address] [phone] reschedule your upcoming appointment Social History Tobacco Use Types Packs/Day Years [...] on filedocumented in this encounter Care Teams Product Sales Representative Relationship Specialty Start Date End Date Tiffanie Malcolm MD [address] [place] [address] [phone] PCP - General INTERNAL MEDICINE 08/02/22 documented as of this encounter
--- OUTSIDE RECORDS SUMMARY | 2024-03-01 20:35 | XMS_ITS | Encounter Summary ---
Author Organization [facility] Address [address] [place] [address]. [place], [place] [phone] [place] [address] Care Team Providers Care Town Justice Name Role Phone Tiffanie Malcolm MD Primary Care Provider [phone] Reason for Visit * Reason Comments Mammogram (SCAN) Encounter Details Date Type Department Care Team ([facility] Contact Info) Description 01/24/2023 Scan HEALTH INFO SRVCS Scanned, Doc Med Group Mammogram (SCAN) Social History Tobacco Use Types Packs/Day Years [...] Diagnosis Comments MAMMOGRAM GENERIC (SCAN ORDER) 01/24/2023 documented in this encounter Results * MAMMOGRAM GENERIC (01/24/2023) Anatomical Region Laterality Modality Other 01/24/2023 us Doc Med Group Scanned SCANNING Final Resu lt documented in this encounter Visit Diagnoses Not on filedocumented in this encounter Care Teams Town Justice Relationship Specialty Start Date End Date Tiffanie Malcolm MD [address] [address] PCP - General INTERNAL MEDICINE 08/02/22 documented as of this encounter
--- OUTSIDE RECORDS SUMMARY | 2024-03-01 20:35 | XMS_ITS | Encounter Summary ---
Author Organization [facility] Address [address] [place] [address]. [place], [place] [address] [place] [address] Care Team Providers Care Tunnel Mucker Name Role Phone Soraya Elias MD Primary Care Pr ovider Unavailable Encounter Details Date Type Department Care Team (Latest Contact Info) Description 07/14/2022 Travel Social History Tobacco Use Types Packs/Day [...] on filedocumented in this encounter Care Teams Tunnel Mucker Relationship Specialty Start Date End Date Soraya Elias MD PCP - General FAMILY PRACTICE 11/10/21 08/01/22 documented as of this encounter
--- OUTSIDE RECORDS SUMMARY | 2024-03-01 20:35 | XMS_ITS | Encounter Summary ---
Author Organization [facility] Address [address] [place] [address]. [place], [place] [address] [place] [address] Care Team Providers Care Rodbuster Name Role Phone Soraya Elias MD Primary Care Pr ovider Unavailable Reason for Visit * Reason Comments Lab (SCAN) Encounter Details Date Type Department Care Team (Latest Contact Info) Description 10/15/2021 Scan MG HEALTH INFO SRVCS Scanned, Documents Lab (SCAN) Social History Tobacco Use Types Packs/Day Years Used Date Smoking Tobacco: Never Assessed PHQ-2 Answer Date Recorded PHQ-2 Score - If the patient scores above 3, please move on to questions 3-9 0 11/10/2021 Comments Unknown Sex and Gender Information Value Date Recorded [...] Procedure Name Priority Date/Time Associated Diagnosis Comments OUTSIDE LAB (SCAN ORDER) 10/15/2021 documented in this encounter Results * OUTSIDE LAB (SCAN) (10/15/2021) 10/15/2021 Narrative 10/15/2021 Ordered by an unspecified provider. us Documents Scanned SCANNING Final Result documented in this encounter Visit Diagnoses Not on filedocumented in this encounter Care Teams Rodbuster Relationship Specialty Start Date End Date Soraya Elias MD PCP - General FAMILY PRACTICE 11/10/21 08/01/22 documented as of this encounter
--- OUTSIDE RECORDS SUMMARY | 2024-03-01 20:35 | XMS_ITS | Encounter Summary ---
Author Organization [facility] Address [address] [place] [address]. [place], [place] [phone] [place] [address] Care Team Providers Care Billing Supervisor Name Role Phone Soraya Elias MD Primary Care Pr ovider Unavailable Reason for Visit * Reason Comments Allied Health Visit Patient is here for lab draw Encounter Details Date Type Department Care Team (Late st Contact Info) Description 12/11/2021 8:30 AM CDT Allied Health/Nurse Visit [facility] Multispecialty Care [address] [place] [address] Soraya Elias MD Allied Health Visit (Patient is here for lab draw) Social History Tobacco Use Types Packs/Day [...] Progress Notes * Yue Woody MA - 12/11/2021 8:30 AM CDT Patient is here for lab draw documented in this encounter Plan of Treatment Not on file documented as of this encounter Procedures Procedure Name Priority Date/Time Associated Diagnosis Comments COLLECTION VENOUS BLOOD VENIPUNCTURE Routine 12/11/2021 8:22 AM CDT Familial hypercholesterolemia documented in this encounter Visit Diagnoses Diagnosis Familial hypercholesterolemia- Primary Pure hypercholesterolemia documented in this encounter Care Teams Billing Supervisor Relationship Specialty Start Date End Date Soraya Elias MD PCP - General FAMILY PRACTICE 11/10/21 08/01/22 documented as of this encounter
--- OUTSIDE RECORDS SUMMARY | 2024-03-01 20:35 | XMS_ITS | Encounter Summary ---
Author Organization [facility] Address [address] [place] [address]. [place], [place] [address] [place] [address] Care Team Providers Care Local Flatbed Driver Name Role Phone Soraya Elias MD Primary Care Pr ovider Unavailable Reason for Visit * Reason Comments ECG (SCAN) Encounter Details Date Type Department Care Team (Latest Contact Info) Description 01/06/2022 Scan MG HEALTH INFO SRVCS Scanned, Doc Med Group ECG (SCAN) Social History Tobacco Use Types Packs/Day [...] Coronavirus/COVID-19? No / Unsure 01/13/2022 8:48 AM UNDERWATER TRAPPER documented as of this encounter Plan of Treatment Not on file documented as of this encounter Procedures Procedure Name Priority Date/Time Associated Diagnosis Comments ECG GENERIC (SCAN ORDER) 01/06/2022 documented in this encounter Results * ECG GENERIC (01/06/2022) 01/06/2022 us Doc Med Group Scanned SCANNING Final Resu lt documented in this encounter Visit Diagnoses Not on filedocumented in this encounter Care Teams Local Flatbed Driver Relationship Specialty Start Date End Date Soraya Elias MD PCP - General FAMILY PRACTICE 11/10/21 08/01/22 documented as of this encounter
== END 2024-02-23 08:52 | disposition home or self-care (01) ==
PROVIDERS: PCP Internal Medicine; Visit Provider Obstetrics & Gynecology
DX: Z12.31 Encounter for screening mammogram for malignant neoplasm of breast (principal)
CPT/HCPCS: 77063; 77067

== ENCOUNTER 2024-11-12 01:04 | Day surgery (SDC) | payer OTHER, SELFPAY ==
[2024-11-05 14:02] VITALS: BMI 37.8
--- NOTE | 2024-11-05 14:08 | PC.NURSE ---
Report to the Outpatient Waiting Room, entrance under the green pavilion located off [facility], at time _0600_ on date _[id number]_. Planned Procedure Time: _0730_.? Time changes happen often and if your time is changed the preop area will call you the afternoon before. - You and your visitor will be asked to self-screen and do not enter if you have any COVID symptoms. Please call surgeon if you need to reschedule. - A mask is optional within the hospital at this time. Patients may have clear liquids (water, carbonated beverages, clear teas, apple juice) until 3 hours prior to surgery with a maximum of 20 ounces. - No food from midnight until time of surgery and no smoking, or chewing tobacco (or any form of nicotine). No chewing gum, candy or mints. Take only the following medications with a SIP of water on the morning of surgery: ___None__ DO NOT STOP ANY OF YOUR OTHER PRESCRIPTION MEDICATIONS PRIOR TO SURGERY EXCEPT THE FOLLOWING Hold all vitamins and supplements for 3 days per anesthesiologist. Medications to discontinue per physician Date to take last dose Please no make-up, nail sao tomean, hairspray, perfume, deodorant, or body powder the day of surgery.? No jewelry (including any body piercings) or valuables the day of surgery, leave them at home.? Please take a shower or bath the night before, or the morning of, surgery with an antibacterial soap.? Wear comfortable, loose fitting clothing.? - Jewelry must be removed prior to entering the operating room.? Rings and piercings that are not removed may be cut off. - The hospital will not accept responsibility for valuables.? - Please leave all valuables, including medications, at home the day of surgery. If you are going home after surgery, a licensed patrol driver must drive you home.? - NO public transportation without another adult if you receive anesthesia. - We recommend that an adult stay with you for 24 hours following discharge. - We also recommend that you do not drive, make important decision, drink alcoholic beverages, or take any drugs that were not prescribed by your health care provider for at least 24 hours after your discharge time. Follow any additional instructions given to you from your surgeon. Telephone instructions given to ___Dawn__and asked if any additional questions and then verbalized understanding. Patient advised to call surgeon office or pre surgery nurse liaison [phone] if any additional questions.
--- NOTE | 2024-11-11 12:39 | PM.IMHP ---
H&P: HPI History of Present Illness Date/Time: 11/11/24 12:39 Chief Complaint: sterilization/prolonged depo use Narrative: Angela is a 44yo P2002 who presents for surgery. She has been on depo for approximately 15 years. She reports for the last few injections, she has been having spotting for 3 weeks before the injection. She had gone many years without any bleeding and this is quite frustrating. She is also having a lot of cramping pains with the spotting which she has never had before. She had a normal RN MATERNITY US, as well as normal EMB in office. Review of Systems Constitutional: Constitutional: Denies chills, Denies fever(s) and Denies headache(s) Eyes: Eyes: Denies change in vision ENT: Denies dizziness and Denies headache(s) Cardiovascular: Cardiovascular: Denies chest pain and Denies dyspnea Respiratory: Respiratory: Denies cough and Denies dyspnea Gastrointestinal: Gastrointestinal: Denies abdominal pain and Denies change in stool character Genitourinary: Genitourinary: Denies abnormal menses, Reports metrorrhagia, Reports pelvic pain, Denies vaginal discharge, Denies vaginal odor and Denies vaginal pruritus Neurologic: Denies dizziness and Denies headache(s) Psychiatric: Psychiatric: Denies anxiety and Denies depression [facility] Past Medical History Medical History Surveillance for Depo-Provera contraception Encounter for IUD insertion 01/16/2008 Mirena insertion Surgical History Surgical History History of tonsillectomy 1990 History of hysteroscopy 05/20/09 hscope d&c w/Mirena iud removal--irregular bleeding, endometrial thickness/benign Family History Family History Sibling CHF (congestive heart failure) sister Social History Social History Smoking status: Never smoker Alcohol intake: current Drinks per week: 4 Substance use: never Substance use type: does not use Current Housing: Decline to Answer Concerned About Future Housing: Decline to Answer Difficulty Paying Gas/Electric Bills: Decline to Answer Difficulty Paying for Meds: Decline to Answer Currently Unemployed: Decline to Answer Education: Decline to Answer Difficulty w/ Childcare or Family Care: Decline to Answer Living arrangements: with family Occupation/Education: occupation Additional occupation/education comments: marketing Gender identity (if verbalized by the patient): Female Sexual Orientation (if Verbalized by the Patient): Straight or Heterosexual Spiritual care concerns: No Meds Home Medications and Allergies Home Medications ?Medication ?Instructions ?Recorded ?Confirmed ?Type medroxyprogesterone 150 mg/mL 150 mg IM [id number] #1 mL 09/12/24 11/05/24 Rx intramuscular suspension (Depo-Provera) cetirizine 10 mg tablet (24Hour 10 mg PO DAILY PRN allergy symptoms 11/05/24 11/05/24 History Allergy) Allergies Allergy/AdvReac Type Severity Reaction Status Date / Time No Known Allergies Allergy Verified 11/05/24 14:01 Exam Const: General: cooperative, comfortable, no acute distress and obese Orientation/consciousness: patient oriented x3 Resp: Effort & Inspection: normal respiratory effort Cardio: Rate: regular rate GI: Inspection: normal to inspection GI Palp: No abdominal tenderness and Yes Soft to palpation : Other: deferred to OR Skin: General skin exam: normal color Neuro: General: patient oriented x3 Extrem: General: normal to inspection Psych: Appearance: grossly normal Affect: normal affect Attitude: cooperative Assessment and Plan Assessment and plan (1) Abnormal uterine bleeding (AUB): Code(s): N93.9 - Abnormal uterine and vaginal bleeding, unspecified Status: Acute (2) Encounter for sterilization: Code(s): Z30.2 - Encounter for sterilization Status: Acute (3) Surveillance for Depo-Provera contraception: Code(s): Z30.42 - Encounter for surveillance of injectable contraceptive Status: Acute Plan - pt has has prolonged depo-provera use (longer than recommended) - options for AUB/contraception discussed in detail - s/p normal EMB in office - Proceed with laparoscopic bilateral salpingectomy, hysteroscopy, D&C and endometrial ablation. Risks and benefits discussed in detail
[2024-11-12] VITALS (8 sets, daily range): BP systolic 112–148; BP diastolic 45–95; PULSE 60–93; RESP 12–21; TEMP 36.4–37; O2SAT 93–100; BMI 38.8
--- OUTSIDE RECORDS SUMMARY | 2024-11-12 01:08 | XMS_ITS | Encounter Summary ---
Author Organization [facility] Address [address] [place] [address] Care Team Providers Care Park Guard Name Role Phone Soraya Elias MD Primary Care Pr ovider [facility] Tiffanie Malcolm MD Primary Care Provider [phone] Encounter Details Date Type Department Care Team (Latest Contact Info) Description 01/13/2022 Auth0t Message Enc [facility] Medical Group Multispecialty Care - [address] [place] [address] Soraya Elias MD Type of cardiomyopathy Social [...] Coronavirus/COVID-19? No / Unsure 01/13/2022 8:48 AM ACID OPERATOR documented as of this encounter Plan of Treatment Not on file documented as of this encounter Visit Diagnoses Not on filedocumented in this encounter Care Teams Park Guard Relationship Specialty Start Date End Date Soraya Elias MD PCP - General FAMILY PRACTICE 11/10/21 08/01/22 Tiffanie Malcolm MD [address] [address] PCP - General INTERNAL MEDICINE 08/02/22 documented as of this encounter
--- OUTSIDE RECORDS SUMMARY | 2024-11-12 01:08 | XMS_ITS | Encounter Summary ---
Author Organization [facility] Address [address] [place] [address] Care Team Providers Care Seismograph Computer Name Role Phone Soraya Elias MD Primary Care Pr ovider [facility] Tiffanie Malcolm MD Primary Care Provider Encounter Details Date Type Department Care Team (Late st Contact Info) Description 11/10/2021 Netviewerhart Message Enc [facility] Medical Group Multispecialty Care - [address] [place] [address] Soraya Elias MD echocardiogram Social History Tobacco [...] on filedocumented in this encounter Care Teams Seismograph Computer Relationship Specialty Start Date End Date Soraya Elias MD PCP - General FAMILY PRACTICE 11/10/21 08/01/22 Tiffanie Malcolm MD [address] [address] PCP - General INTERNAL MEDICINE 08/02/22 documented as of this encounter
--- OUTSIDE RECORDS SUMMARY | 2024-11-12 01:08 | XMS_ITS | Clinical Summary ---
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 Encounters Date Type Department Care Team Description 09/12/2024 Scan [facility] Scanned, Doc Med Group Ultrasound (SCAN) from Last 3 Months Immunizations Immunization Administration Dates Next Due Influenza Adult (Generic) [...] 90 09/06/2022 10:41 AM CDT Temperature 37.2 C (98.9 F) 07/09/2022 8:49 AM CDT Respiratory Rate 16 07/09/2022 8:49 AM CDT Oxygen Saturation 98% 09/06/2022 10: 41 AM CDT Inhaled Oxygen Concentration - - Weight 101.4 kg (223 lb 9.6 oz) 023 10:41 AM CDT Height 163.8 cm (5' 4.5) 09/06/2022 10 :41 AM CDT Body Mass Index 37.79 09/06/2022 10:41 AM CDT Plan of Treatment Health Maintenance Due Date Last Done Comments Cervical Cancer Screening Pa p Smear (Age 30 to 64) Every 3 Years 1980 DTaP, Tdap and Td Vaccines ( 1 - Tdap) 02/15/1999 Hepatitis B Vaccines (1 of 3 - 19+ 3-dose series) 02/15/1999 HPV Vaccines (1 - 3-dose SCD M series) 02/15/2007 Cervical Cancer Screening Pa p with HPV Testing (Age 30 to 64) Every 5 Years 02/15/2010 Cervical Cancer Screening wi th HPV 02/15/2010 Annual Physical 01/13/2023 01/13/2022 PHQ-2 (Physician [place]) 02/29/2024 COVID-19 Vaccine (2024- 6 season) 2024 02/23/2021, 05/15/2020, 04/24/2020 Mammogram Screening 02/22/2026 02/23/2024, 01/24/2023 Hepatitis C Completed 01/13/2022 Meningococcal B Vaccine Aged Out No l onger eligible based on patient's age to complete this topic Meningococcal Vaccine Aged Out No dori goldy eligible based on patient's age to complete this topic Pneumococcal Vaccine: Pediatrics (0 to 5 Years) and At-Risk Patients (6 to 49 Years) Aged Out No longer eligible b ased on patient's age to complete this topic RSV Immunizations Under 20 Months Aged Out No longer eligible b ased on patient's age to complete this topic Procedures Procedure Name Priority Date/Time Associated Diagnosis Comments ULTRASOUND GENERIC (SCAN ORDER) 09/12/2024 MAMMOGRAM GENERIC (SCAN ORDER) 02/23/2024 HEPATITIS C ANTIBODY Routine 01/13/2022 9:55 AM COW TESTER Annual physical exam Need for hepatitis C screening test from Last 3 Months or Most Recently Relevant to Health Maintenance Results * ULTRASOUND GENERIC (SCAN ORDER) (09/12/2024) Anatomical Region Laterality Modality Other 09/12/2024 [facility] Scanned SCANNING Final Resu lt * MAMMOGRAM GENERIC (SCAN ORDER) (02/23/2024) Anatomical Region Laterality Modality Other 02/23/2024 [facility] Scanned SCANNING Final Resu lt * HEPATITIS C ANTIBODY (01/13/2022 9:55 AM COW TESTER) HEPATITIS C AB NON-REACTI VE NON-REACT BULMARO 01/13/2022 7:29 PM COW TESTER [facility] Comment: ANTIBODIES TO HCV NOT DETECTED. DOES NOT EXCLUDE THE POSSIBILITY OF EXPOSURE TO HCV. 01/13/2022 9:55 AM COW TESTER Soraya Elias MD LABORATORY Final Result [facility] [address] [place] [address], [place] [phone] [id number] from Last 3 Months or Most Recently Relevant to Health Maintenance Insurance Care Teams Residency Program Coordinator Relationship Specialty Start Date End Date Tiffanie Malcolm MD [address] [address] PCP - General INTERNAL MEDICINE 08/02/22
--- OUTSIDE RECORDS SUMMARY | 2024-11-12 01:08 | XMS_ITS | Encounter Summary ---
Author Organization [facility] Address [facility] [place] [address] Care Team Providers Care Cut In Station Operator Name Role Phone Tiffanie Malcolm MD Primary Care Provider Encounter Details Date Type Department Care Team (Latest Contact Info) Description 01/09/2023 Parity Energyt Message Enc [facility] Medical Group Multispecialty Care - [place] [address] [address] [place] [address] Tiffanie Malcolm MD [address] [place] [address] reschedule your upcoming appointment Social History Tobacco [...] on filedocumented in this encounter Care Teams Cut In Station Operator Relationship Specialty [place] [address] [place] [address] PCP - General INTERNAL MEDICINE 08/02/22 documented as of this encounter
--- OUTSIDE RECORDS SUMMARY | 2024-11-12 01:08 | XMS_ITS | Encounter Summary ---
Author Organization [facility] Address [facility] [place] [address] Care Team Providers Care General Ledger Accountant Name Role Phone Tiffanie Malcolm MD Primary Care Provider [phone] Encounter Details Date Type Department Care Team (Late st Contact Info) Description 12/03/2022 Visible Measures Message [facility] [employer] [place] [address] [employer], [facility] Provider Payment Plan Social History Tobacco Use [...] on filedocumented in this encounter Care Teams General Ledger Accountant Relationship Specialty Start Date End Date Tiffanie Malcolm MD [address] [address] PCP - General INTERNAL MEDICINE 08/02/22 documented as of this encounter
--- OUTSIDE RECORDS SUMMARY | 2024-11-12 01:08 | XMS_ITS | Encounter Summary ---
Author Organization [facility] Address [address] [place] [address] Care Team Providers Care Ropeman Name Role Phone Soraya Elias MD Primary Care Pr ovider [facility] Tiffanie Malcolm MD Primary Care Provider [phone] Encounter Details Date Type Department Care Team (Late st Contact Info) Description 12/14/2021 Keepyt Message Enc [facility] Medical Group Multispecialty Care - [address] [place] [address] Soraya Elias MD Lab Follow Up Social [...] on filedocumented in this encounter Care Teams Ropeman Relationship Specialty Start Date End Date Soraya Elias MD PCP - General FAMILY PRACTICE 11/10/21 08/01/22 Tiffanie Malcolm MD [address] [address] PCP - General INTERNAL MEDICINE 08/02/22 documented as of this encounter
[2024-11-12] MEDS: KETOROLAC 15 MG/ML VIAL (*BKC) IV PUSH (07:00)
[2024-11-12] MEDS: ACETAMINOPHEN 500 MG TABLET 1000 MG PO (07:00)
[2024-11-12] MEDS: LACTATED RINGERS 1,000 ML 30 ML IV CONT ×2 (07:00→09:15)
--- NOTE | 2024-11-12 07:02 | WPDHPUPDATE1 ---
History and Physical Update Update Date/Time: 11/12/24 07:02 History and Physical has been reviewed, including an updated exam of the patient. There are NO changes in the patient's condition. Risks, benefits, and alternatives have been discussed and questions answered. Patient agrees to proceed with laparoscopic bilateral salpingectomy, hysteroscopy, D&C and endometrial ablation.
--- NOTE | 2024-11-12 07:38 | WPDANESEPPF ---
Anes - Initial Pre Proc Eval Procedure: Operation Date: 11/12/24 08:15 Proposed Procedures p Hysteroscopy, Dilatation and Curettage, Gillian Endometrial Ablation, Laparoscopic Bilateral Salpingectomy - Christie Johnson MD Date/Time: 11/12/24 07:38 Surgeon: Christie Johnson MD Pre Op Diagnosis: abn uterine bleeding Patient Data Age: 44 Gender: F Height: 1.63 m Weight: 102.6 kg Last Vital Signs Temp 37.0 C 11/12/24 07:20 Pulse 93 11/12/24 07:20 BP 148/95 H 11/12/24 07:20 Pulse Ox 100 11/12/24 07:20 O2 Del Method Room Air 11/12/24 07:20 Allergies Allergy/AdvReac Type Severity Reaction Status Date / Time No Known Allergies Allergy Verified 11/12/24 07:16 Home Medications ?Medication ?Instructions ?Recorded ?Confirmed ?Type medroxyprogesterone 150 mg/mL 150 mg IM [id number] #1 mL 09/12/24 11/05/24 Rx intramuscular suspension (Depo-Provera) cetirizine 10 mg tablet (24Hour 10 mg PO DAILY PRN allergy symptoms 11/05/24 11/05/24 History Allergy) acetaminophen 500 mg tablet 1,000 mg (2 x 500 mg) PO TID #60 11/12/24 Rx tabs docusate sodium 100 mg capsule 100 mg PO BID #90 caps 11/12/24 Rx (Colace) ibuprofen 800 mg tablet 800 mg PO TID #30 tabs 11/12/24 Rx oxycodone 5 mg tablet 5 mg PO Q4H PRN pain #14 tabs 11/12/24 Rx Patient hx anesthesia problems: none Family hx anesthesia problems: none Results Review: All pre-operative results and documents have been reviewed as part of the pre-operative evaluation. [facility] Past Medical History Medical History Surveillance for Depo-Provera contraception Encounter for IUD insertion 01/16/2008 Mirena insertion Surgical History Surgical History History of tonsillectomy 1989 History of hysteroscopy 05/20/09 hscope d&c w/Mirena iud removal--irregular bleeding, endometrial thickness/benign Family History Family History Sibling CHF (congestive heart failure) sister Social History Social History Smoking status: Never smoker Alcohol intake: current Drinks per week: 4 Substance use: never Substance use type: does not use Current Housing: Decline to Answer Concerned About Future Housing: Decline to Answer Difficulty Paying Gas/Electric Bills: Decline to Answer Difficulty Paying for Meds: Decline to Answer Currently Unemployed: Decline to Answer Education: Decline to Answer Difficulty w/ Childcare or Family Care: Decline to Answer Living arrangements: with family Occupation/Education: occupation Additional occupation/education comments: marketing Gender identity (if verbalized by the patient): Female Sexual Orientation (if Verbalized by the Patient): Straight or Heterosexual Spiritual care concerns: No Anes - Eval Final PreProcedure Day of Procedure 11/12/24 07:38 Patient weight: obese Heart: regular rate and rhythm Lungs: clear to auscultation Airway: Mallampati scale class II Neurological: alert and oriented Last oral intake: >/= 8 hours ASA classification: II Emergent: no Anesthetic plan: proceed Anesthesia type and monitoring: general GIVS and standard monitoring Results Review: All pre-operative results and documents have been reviewed as part of the pre-operative evaluation. Informed Consent: The patient's anesthetic plan and its attendant risks and benefits were discussed with the patient/family/POA. Questions were solicited and answers provided to the satisfaction of the patient/family/POA.
[2024-11-12] MEDS: ceFAZolin 2 GM in SODIUM CHLORIDE 0.9% IV 50 ML 100 ML IVPB (08:14)
--- NOTE | 2024-11-12 08:47 | S_PTH ---
PATIENT: Angela Brady LOC: [facility] U#:[id number] AGE/SX: 44/F ROOM: RE11/12/[address]: Christie Johnson MD : 1980 BED: DIS: 11/12/2024 SPEC #: [id number] RECD: 11/12/24 09:54 STATUS: AMINATA REQ #: [id number] CHRISTINE: 11/12/24 08:[address]: Christie Johnson DEPT: [facility] Surgical RECD BY: Carina Barnett ENTERED: 11/12/24 09:54 SP TYPE: Surgical OTHR DR: Tiffanie Malcolm, Tissues: A - Fallopian Tube Single B - Fallopian Tube Single C - Endometrial Curettings Procedures: Gross and Microscopic Level 2 Hematoxylin and Eosin Stain Gross and Microscopic Level 4
[2024-11-12] MEDS: LIDOCAINE 1% LOCAL INJ 10 ML VIAL 20 ML INFILTRATE (09:00)
--- NOTE | 2024-11-12 09:08 | P.OP_ITS ---
Procedure Note - Detailed Date of Procedure 11/12/24 Pre-op Diagnosis abn uterine bleeding sterilization Post-op Diagnosis Same Procedure Performed Laparoscopic bilateral salpingectomy, hysteroscopy, D&C, endometrial ablation Surgeon Christie Johnson MD Anesthesia General and Local (10cc of 1% lidocaine w/o epi) Findings Uterus sounded to 10cm; cervix 5cm. Normal appearing ovaries and fallopian tubes bilaterally. Mild adhesions to the right adnexa were taken down with gentle traction. Normal uterus; no endometrial cavity abnormalities; bilateral tubal ostia visualized. Good hemostasis at end of case. Fluid deficit: 70cc Description of Procedure Angela was taken to the operating room where she was placed under general endotracheal anesthesia without complications. She was then prepped and draped in the usual sterile fashion in the dorsal lithotomy position with her legs in low Marco stirrups and her arms tucked at her side with a strap over her chest. A time-out was performed and she received 2g Ancef. My attention was turned down below where her bladder was drained via straight catheterization. A bivalve speculum was then placed within the vagina where the cervix was easily identified. The anterior lip of the cervix was grasped with a single-tooth tenaculum, the uterus was sounded, and an acorn uterine manipulator was placed without complications. My gloves were changed and my attention was turned to her abdomen. An umbilical incision was made, and a 5 mm trocar was placed under direct visualization without complications. Once intra-abdominal placement was confirmed the abdomen was insufflated with carbon dioxide gas. She was then placed in Trendelenburg and two additional 5 mm ports were placed in the left and right lower quadrants under direct visualization without complications. The above findings were noted. The left fallopian tube was then elevated and the mesosalpinx was serially clamped, coagulated, transected using the LigaSure device until the proximal end of the fallopian tube was reached. The proximal end of the fallopian tube was cross clamped, coagulated and transected. The tube was then removed from the abdomen. The same procedure was then performed on the right side without any complications. Good hemostasis was noted. All instruments were removed from the abdomen. The insufflation was released and the trocars were removed. The 3 laparoscopic incision sites were reapproximated using 4-0 Monocryl and covered with Dermabond. The incisions were then infiltrated using 1% Lidocaine without epinephrine. The uterine manipulator was removed. A bivalve speculum was placed within the vagina where the cervix was easily identified. The anterior lip of the cervix was grasped with a single- tooth tenaculum. The cervix was then serially dilated to allow for the hysteroscope. The hysteroscope was advanced into the uterine cavity with the above findings noted. A curettage was then performed until a good uterine cry was felt throughout the uterus. The Gillian endometrial ablation device was t hen placed within the endometrial cavity; set to 5cm. The procedure was performed per wharfinger chief's instructions in the correct manner without complications. Good hemostasis was noted. All instruments were removed from the vagina. Sponge, lap, instrument, and needle counts were correct at the end of the procedure. Patient was awoken from general anesthesia and taken to recovery with plans of same-day discharge home. Estimated Blood Loss 10 IV Fluids 1,000 Urine Output 100 Pathology Yes (left and right fallopian tube, endometrial curettings) Complications No immediate complications Condition Stable Disposition Same day [facility] Billing Surgery - Charge Forward: Surgery Billing
[2024-11-12] MEDS: fentaNYL CITRATE INJ (*CRX) 100 MCG/2 ML VIAL 25 MCG IV PUSH ×4 (09:45→09:54)
[2024-11-12] MEDS: oxyCODONE HCL (*CRX) 5 MG TAB IR PO (10:23)
== END 2024-11-12 11:04 | disposition home or self-care (01) ==
PROVIDERS: PCP Internal Medicine; Visit Provider Obstetrics & Gynecology
PROC: 0UDB8ZZ Extraction of Endometrium, Via Natural or Artificial Opening Endoscopic (ICD-10-PCS; CPT 58558; principal; 2024-11-12 08:15)
DX: Z30.2 Encounter for sterilization (principal); N73.6 Female pelvic peritoneal adhesions (postinfective); E66.9 Obesity, unspecified; Z68.38 Body mass index [BMI] 38.0-38.9, adult; Z79.1 Long term (current) use of non-steroidal anti-inflammatories (NSAID); Z79.891 Long term (current) use of opiate analgesic; Z98.890 Other specified postprocedural states; Z82.49 Family history of ischemic heart disease and other diseases of the circulatory system
CPT/HCPCS: 58661; 58563; 88302; 88305; J0690; A9270; J1100; J1885; J2003; J2250; J2405; J2704; J3010; J7030; J7120

== ENCOUNTER 2025-02-25 14:17 | Outpatient (CLI) | payer OTHER, SELFPAY ==
--- NOTE | ~2025-02-25 | MM_ITS ---
EXAMINATION: MM screening shawn BI w rahul HISTORY: Screening. TECHNIQUE: Craniocaudal and mediolateral oblique 3-D tomosynthesis images were obtained and synthetic 2-D images were generated. CAD analysis was submitted and interpreted. COMPARISON: 2023, 2022, and 2021. BREAST PARENCHYMAL COMPOSITION: Not Dense: There are scattered areas of fibroglandular FINDINGS: No suspicious masses are seen. There are no suspicious calcifications. No unexplained architectural distortion is seen. There are no skin or nipple abnormalities identified. There is no adenopathy seen on the images submitted. IMPRESSION: No mammographic evidence to suggest malignancy is seen. The patient may return to screening mammography as per ACR guidelines. BI-RADS 1 - Negative. Reviewed, dictated and finalized at location [facility] [employer]
--- OUTSIDE RECORDS SUMMARY | 2025-02-25 14:32 | XMS_ITS | Encounter Summary ---
Author Organization [facility] Address [address] [place] [address] Care Team Providers Care Senior Piping Designer Name Role Phone Soraya Elias MD Primary Care Pr ovider [facility] Tiffanie Malcolm MD Primary Care Provider [phone] Encounter Details Date Type Department Care Team (Latest Contact Info) Description 01/13/2022 Jumbletst Message Enc [facility] Multispecialty Care - [address] [place] [address] Soraya Elias MD Type of cardiomyopathy Social [...] Coronavirus/COVID-19? No / Unsure 01/13/2022 8:48 AM RUG REPAIRER documented as of this encounter Plan of Treatment Not on file documented as of this encounter Visit Diagnoses Not on filedocumented in this encounter Care Teams Senior Piping Designer Relationship Specialty Start Date End Date Soraya Elias MD PCP - General FAMILY PRACTICE 11/10/21 08/01/22 Tiffanie Malcolm MD [address] [address] PCP - General INTERNAL MEDICINE 08/02/22 documented as of this encounter
--- OUTSIDE RECORDS SUMMARY | 2025-02-25 14:32 | XMS_ITS | Encounter Summary ---
Author Organization [facility] Address [facility] [place] [address] Care Team Providers Care Agricultural Labor Camp Manager Name Role Phone Tiffanie Malcolm MD Primary Care Provider [phone] Encounter Details Date Type Department Care Team (Latest Contact Info) Description 01/09/2023 Chaologixt Message Enc [facility] Multispecialty Care - [place] [address] [address] [place] [address] Tiffanie Malcolm MD [address] [place] [address] reschedule your upcoming appointment Social History Tobacco [...] on filedocumented in this encounter Care Teams Agricultural Labor Camp Manager Relationship Specialty [place] [address] [place] [address] PCP - General INTERNAL MEDICINE 08/02/22 documented as of this encounter
--- OUTSIDE RECORDS SUMMARY | 2025-02-25 14:32 | XMS_ITS | Encounter Summary ---
Author Organization [facility] Address [address] [place] [address] Care Team Providers Care Hog Ringer Name Role Phone Soraya Elias MD Primary Care Pr ovider [facility] Tiffanie Malcolm MD Primary Care Provider [phone] Encounter Details Date Type Department Care Team (Late st Contact Info) Description 11/10/2021 SPARQhart Message Enc [facility] Medical [facility] Multispecialty Care - [address] [place] [address] Soraya Elias MD echocardiogram Social History Tobacco [...] on filedocumented in this encounter Care Teams Hog Ringer Relationship Specialty Start Date End Date Soraya Elias MD PCP - General FAMILY PRACTICE 11/10/21 08/01/22 Tiffanie Malcolm MD [address] [address] PCP - General INTERNAL MEDICINE 08/02/22 documented as of this encounter
--- OUTSIDE RECORDS SUMMARY | 2025-02-25 14:32 | XMS_ITS | Encounter Summary ---
Author Organization [facility] Address [address] [place] [address] Care Team Providers Care Cuffing Machine Operator Name Role Phone Soraya Elias MD Primary Care Pr ovider [facility] Tiffanie Malcolm MD Primary Care Provider [phone] Encounter Details Date Type Department Care Team (Late st Contact Info) Description 12/14/2021 Bluebox Now!t Message Enc [facility] Medical [facility] Multispecialty Care - [address] [place] [address] Soraya Elias MD Lab Follow Up Social [...] on filedocumented in this encounter Care Teams Cuffing Machine Operator Relationship Specialty Start Date End Date Soraya Elias MD PCP - General FAMILY PRACTICE 11/10/21 08/01/22 Tiffanie Malcolm MD [address] [address] PCP - General INTERNAL MEDICINE 08/02/22 documented as of this encounter
--- OUTSIDE RECORDS SUMMARY | 2025-02-25 14:32 | XMS_ITS | Encounter Summary ---
Author Organization [facility] Address [facility] [place] [address] Care Team Providers Care Addresser Name Role Phone Tiffanie Malcolm MD Primary Care Provider [phone] Encounter Details Date Type Department Care Team (Late st Contact Info) Description 12/03/2022 Wizdee Message [facility] [employer] [place] [place] [address] [employer], [facility] Provider Payment Plan Social History Tobacco [...] on filedocumented in this encounter Care Teams Addresser Relationship Specialty Start Date End Date Tiffanie Malcolm MD [address] [address] PCP - General INTERNAL MEDICINE 08/02/22 documented as of this encounter
--- OUTSIDE RECORDS SUMMARY | 2025-02-25 14:32 | XMS_ITS | Clinical Summary ---
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 Immunizations Immunization Administration Dates Next Due Influenza [...] 02/15/2010 Annual Physical 01/13/2023 01/13/2022 PHQ-2 (Physician [facility] [place]) 02/29/2024 COVID-19 Vaccine (4 - 2024-2 6 season) 2024 02/23/2021, 05/15/2020, 04/24/2020 Influenza Adult (#1) 2024 01/18/2020 Mammogram Screening 02/22/2026 02/23/2024, 01/24/2023 Hepatitis C Completed 01/13/2022 Hepatitis A Vaccines Aged Out No long er eligible based on patient's age to complete this topic Meningococcal B Vaccine Aged Out No l [...] Associated Diagnosis Comments MAMMOGRAM GENERIC (SCAN ORDER) 02/23/2024 HEPATITIS C ANTIBODY Routine 01/13/2022 9:55 AM PERIOPERATIVE EDUCATOR Annual physical exam Need for hepatitis C screening test from Last 3 Months or Most Recently Relevant to Health Maintenance Results * MAMMOGRAM GENERIC (SCAN ORDER) (02/23/2024) Anatomical Region Laterality Modality Other 02/23/2024 [facility] Scanned SCANNING Final Resu lt * HEPATITIS C ANTIBODY (01/13/2022 9:55 AM PERIOPERATIVE EDUCATOR) HEPATITIS C AB NON-REACTI VE NON-REACT BULMARO 01/13/2022 7:29 PM PERIOPERATIVE EDUCATOR [facility] Comment: ANTIBODIES TO HCV NOT DETECTED. DOES NOT EXCLUDE THE POSSIBILITY OF EXPOSURE TO HCV. 01/13/2022 9:55 AM PERIOPERATIVE EDUCATOR Soraya Elias MD LABORATORY Final Result [facility] [address] [place] [address], [id number] from Last 3 Months or Most Recently Relevant to Health Maintenance Insurance Care Teams Thread Marker Relationship Specialty Start Date End Date Tiffanie Malcolm MD [facility] [address] [place] [address] PCP - General INTERNAL MEDICINE 08/02/22
== END 2025-02-25 14:18 | disposition home or self-care (01) ==
LOC: ANHFOHIMG 14:18
PROVIDERS: PCP Internal Medicine; Visit Provider Obstetrics & Gynecology
DX: Z12.31 Encounter for screening mammogram for malignant neoplasm of breast (principal)
CPT/HCPCS: 77063; 77067